=== PATIENT | female | born 1965 | race African-American/Black ===

== ENCOUNTER 2019-04-15 08:32 | Day surgery (SDC) | payer OTHER ==
[~2019-04-15 08:32] MED LIST: HYDROMORPHONE HCL 2 MG/ML inj ONE
--- OUTSIDE RECORDS SUMMARY | 2019-04-15 08:35 | XMS REPORT ---
:1965 [facility] Address [address] [place] [address] Dr. Calvo [address] [place] [id number] Care Team Providers Name Role Phone Unavailable Unavailable Unavailable Problems This patient has no known problems. Allergies, Adverse Reactions, Alerts This patient has no known allergies or adverse reactions. Medications This patient has no known medications.
[2019-04-15] MEDS ORDERED: NA CHLORIDE 0.9% 1,000 ML ONE ×2 (08:42→09:03)
[2019-04-15] MEDS ORDERED: LIDOCAINE 1% W/EPI 1:100,000 MDV 20 ML VIAL ONE (09:02)
[2019-04-15 09:03] LABS: Specific Gravity >= 1.030 (1.005-1.030)
[2019-04-15] MEDS ORDERED: MIDAZOLAM HCL 2 MG/2 ML INJ ONE (09:08)
[2019-04-15] MEDS ORDERED: ONDANSETRON 4 MG/2 ML VIAL ONE (09:08)
[2019-04-15] MEDS ORDERED: PROPOFOL 200 MG/20 ML VIAL IV ONE (09:08)
[2019-04-15] MEDS ORDERED: FENTANYL CITR 100 MCG/2 ML ONE (09:08)
[2019-04-15] MEDS ORDERED: LIDOCAINE 2% MPF 5 ML VIAL ONE (09:08)
[2019-04-15] MEDS ORDERED: IBUPROFEN 400 MG TAB ONE (10:48)
[2019-04-15] MEDS ORDERED: IBUPROFEN 200 MG TAB PO ONE (10:48)
--- NOTE | 2019-04-16 04:14 | OP ---
Date of Procedure: 04/15/2019 Surgeon: Yanet Hui MD Yacht Master: No assistants. Preoperative Diagnosis: History of endometrial hyperplasia, patient now with irregular periods, stil l in the premenopausal state. Postoperative Diagnosis: History of endometrial hyperplasia, patient now with irregular periods, sti ll in the premenopausal state. Procedures Performed: Hysteroscopy, dilation and curettage. Anesthesia: General with LMA. Specimens: Endometrial curetting. Complications: None. Drains: None. Condition: Stable. Findings: Uterine cavity unremarkable. Both tubal ostia well visualized. Endometrium did not appea r to be very thick and there was just a small impression of myoma in the anterior wall, but no other concerning irregular growths. Description Of Procedure: After informed consent was verified, patient was taken back to the OR, reginaldo mayank in a supine fashion on the operating table. After general anesthesia was given, LMA was placed a nd patient had a short period of time where there were oxygenation issues. She had saturations down to low 60s, so we waited to make sure that she was oxygenating and ventilating well. Once this was e nsured, then she was placed in a dorsal lithotomy position. She was placed in reverse Trendelenburg so that the airway was not compromised. Pelvic exam was performed. Uterus was anteflexed. Prep x3 with Betadine was done in the vagina. Speculum placed to expose the cervix. Anterior lip grasped wi th 2 Allis clamps. Diagnostic SlimLine hysteroscope was introduced through the cervical canal. Uter ine cavity was entered. Cavity was unremarkable as dictated above. Endometrial sampling was perform ed with a 0 curette. Scant endometrium was obtained, handed out for permanent pathology. All the in struments were removed. She was recovered from anesthesia in the OR and taken to the PACU in stable condition. She was saturating around 90% as she was leaving the OR. She will follow up with us in 1 week for results and once this is discussed, plan would be to limit her progesterone exposure to mary ry 3 months as long as her FSH is still below 40 and she is premenopausal. I discussed with this pat ient extensively about the safety of the Mirena compared to all the procedures that she is undergoing in order for maintenance that would decrease the need for surveillance as well as be protective for her endometrium given that she is unable to lose any weight. At this time, patient is not motivated to go through any weight loss procedures or do any diet changes for targeting weight loss. Patient u nderstands this; however, has severe reservations against Mirena. We will discuss this at the postop appointment. SUNIL Voice ID: [id number] Report ID: [id number]
== END 2019-04-15 11:30 | disposition home or self-care (01) ==
LOC: OR 08:32
PROVIDERS: ATTEND Obstetrics & Gynecology
PROC: 0UJD8ZZ Inspection of Uterus and Cervix, Via Natural or Artificial Opening Endoscopic (ICD-10-PCS; 2019-04-15)
PROC: 0UDB7ZX Extraction of Endometrium, Via Natural or Artificial Opening, Diagnostic (ICD-10-PCS; principal; 2019-04-15 09:30)
DX: N85.01 Benign endometrial hyperplasia (principal); N92.6 Irregular menstruation, unspecified; N95.1 Menopausal and female climacteric states; I10 Essential (primary) hypertension; E11.9 Type 2 diabetes mellitus without complications; K21.9 Gastro-esophageal reflux disease without esophagitis; E78.00 Pure hypercholesterolemia, unspecified; E66.01 Morbid (severe) obesity due to excess calories; Z68.43 Body mass index [BMI] 50.0-59.9, adult; Z88.6 Allergy status to analgesic agent; Z88.8 Allergy status to other drugs, medicaments and biological substances; Z80.3 Family history of malignant neoplasm of breast; Z80.0 Family history of malignant neoplasm of digestive organs; Z80.42 Family history of malignant neoplasm of prostate
CPT/HCPCS: 81025; 82962 ×2; 88305; 58558; J2704; J2250; J3010; J7030 ×2; J2405; J1170

== ENCOUNTER 2020-11-14 09:58 | Day surgery (SDC) | payer OTHER ==
[2020-11-14] MEDS ORDERED: NA CHLORIDE 0.9% 1,000 ML ONE (10:33)
[2020-11-14] MEDS ORDERED: CEFAZOLIN/SWI 2gm 2 GM/20 ML SYR ONE (10:33)
[2020-11-14] MEDS ORDERED: FENTANYL CITR 100 MCG/2 ML ONE (11:40)
[2020-11-14] MEDS ORDERED: MIDAZOLAM HCL 2 MG/2 ML INJ ONE (11:40)
[2020-11-14] MEDS ORDERED: LIDOCAINE 1% MPF 2 ML AMPULE ONE (11:40)
[2020-11-14] MEDS ORDERED: propofoL 200 MG/20 ML VIAL IV ONE (11:40)
[2020-11-14] MEDS ORDERED: LIDOCAINE 1% MPF 30 ML VIAL ONE (12:08)
[2020-11-14] MEDS ORDERED: BUPIVACAINE 0.25% PF 30 ML VIAL ONE (12:08)
[2020-11-14] MEDS ORDERED: KETOROLAC 30 MG/ML INJ ONE (13:37)
--- NOTE | 2020-11-14 14:01 | P.OP ---
Preoperative diagnosis: Temporal Arteritis Postoperative diagnosis: Temporal Arteritis Primary procedure: RIGHT Temporal Artery Biopsy Anesthesia: Local Estimated blood loss: <1cc Specimen: 1.3 cm segment of temporal artery Findings: tortuous temporal artery Complications: None Transferred to: Recovery Room Condition: Good
[2020-11-14 14:49] VITALS: TEMP 98.1; O2SAT 99
[2020-11-14 14:51] VITALS: BP 128/60
--- NOTE | 2020-11-14 22:39 | OP ---
Date of Procedure: 11/14/2020 Surgeon: Rudy Cabral MD, Preoperative Diagnosis: Temporal arteritis/giant cell arteritis. Postoperative Diagnosis: Temporal arteritis/giant cell arteritis. Procedure Performed: Right temporal artery biopsy. Anesthesia: Local 1% lidocaine used without epinephrine. Estimated Blood Loss: Less than 1 cc. Specimen: 1.3 cm segment of temporal artery. Findings: Tortuous temporal artery. Complications: None. Disposition: The patient was transferred to recovery room in good condition. Procedure In Detail: After informed consent was obtained, patient was prepped and draped in the usua l sterile fashion after adequate anesthesia was achieved. I mapped the area of the right temporal ar chino at the approximately 4 cm superior to the tragus on the right. I anesthetized this area after a ppropriately mapping and using Doppler ultrasound device. At this point, I made a sharp incision thr ough the subcutaneous tissues down through. I used electrocautery to dissect down through subcutaneo us fat to expose the temporoparietal fascia. At this point, no more electrocautery was used and I di ssected through the temporoparietal fascia to expose the temporal artery. At this point, I dissected the small tributaries and branches from the temporal artery staying on the superficial temporopariet al fascia to expose approximately 1.3 to 1.4 cm segment of the temporal artery. There was a bifurcat ion at this level going superiorly. As such at this point, I decided to ligate the temporal artery a nd took approximately 1.3 cm segment of temporal artery by encircling above some small distal aspect tying these off with 3-0 silk and using tenotomy scissors to ligate the structure. It was sent off f or pathologic examination. All tributaries were controlled with the same set 3-0 nylon suture withou t evidence of complication. No hemostatic measures were required and no bleeding was appreciated thr oughout the procedure. The area was copiously irrigated multiple times until completely clear. No a dditional hemostatic measures were required. The deep parietal fascia was left intact. At this poin t, I then reapproximated the skin and deep dermal plane using a 3-0 Vicryl suture in interrupted fash ion and the skin was closed with 4-0 Monocryl in a running fashion. Dermabond was placed over top. The patient tolerated the procedure well without evidence of complication and transferred to PACU in good condition. All counts were correct at the end of the case. LAVINIA/TREE Voice ID: [id number] Report ID: [id number]
== END 2020-11-14 15:05 | disposition home or self-care (01) ==
LOC: OR 09:58
PROVIDERS: ATTEND Surgery
PROC: 03BS0ZX Excision of Right Temporal Artery, Open Approach, Diagnostic (ICD-10-PCS; principal; 2020-11-14 12:00)
DX: M31.6 Other giant cell arteritis (principal); Z20.822 Contact with and (suspected) exposure to COVID-19
CPT/HCPCS: 37609; 82947 ×2; 88305; U0003; J2704; J3010; J2001; J0690; J7030; J2250

== ENCOUNTER 2024-08-16 08:48 | Emergency (ER) | payer OTHER ==
--- OUTSIDE RECORDS SUMMARY | 2024-08-16 08:55 | XMS REPORT | Continuity of Care Document ---
Author Name Unknown Address [address] [facility] [address] [place] [address] [facility] thconnect Address [address] [facility] [address] [place] [address] Care Team Providers Care Card Filer Name Role Phone Lauren SANHCEZ, Paula Primary Care Physician + [phone] PAULA JOHN Attending Clinician Unavailab PAULA Marie Attending Clinician Unavailab romeo John MANAGER CATEGORY, Paula Attending Clinician [phone] Gen OLIVAS, Orestes Attending Clinician [phone], [facility] Attending Clinician Unavailable Oscar Smith Attending Clinician [phone] Lab, Ang - Db Attending Clinician Unavailable OSCAR WALKER Attending Clinician Unavailable Mere Marrufo MD Attending Clinician + [phone] Doctor Unassigned, [place] Attending Clinician U navailable [email or web address] Attending Clinician Unavailrafi Rushing MD, Orestes Attending Clinician [phone] Nirmala Posada LCSW Attending Clinician [phone], [facility] Attending Clinician Unavailable ORESTES RUSHING Attending Clinician Unavailab Ananda Diana MD Attending Clinician MERE MARRUFO Attending Clinician Silvana Gardner MD Attending Clinician [phone] ANANDA PRINCE Attending Clinician Unavail able ANANDA PRINCE Attending Clinician Unavail able Lab, Ang - Db Attending Clinician Unavailable Pema Donald Attending Clinician [phone] Nurse, [facility] Attending Clinician Unavailable Vicki Castillo MD Attending Clinician [phone] VICKI CASTILLO Attending Clinician UnavailSILVANA Jordan Attending Clinician Unavailable NENO COLES Attending Clinician JERAMIE Curran Attending Clinician Unavailable SYHLA ALMAGUER Attending Clinician Unavailable [email or web address] Admitting Clinician UnavailJERAMIE Scott Admitting Clinician Unavailable Payers Payer Name Policy Type Policy Number Effective Date Expirati on Date Source MEDICARE PART A \T\ B [id number] 2009 00:00:00 [place] [id number] 2010 00:00:00 [place] [employer] [id number] 2009 00:00:00 [place] [id number] Problems Condition Name Condition Details Condition Category Status Onset Date Resolution Date Last Treatment Date Treating Clinician Comments Source Immunizati on due Immunizati on due Disease Active 09-09 00:00: 00 [facility] Diabetes mellitus Diabetes Mellitus Problem Active 04-04 00:00: 00 [facility] Hyperchole sterolemia Hyperchole sterolemia Problem Active 04-04 00:00: 00 [facility] Obesity Obesity Problem Active 04-04 00:00: 00 [facility] Neuropathy Neuropathy Problem Active 04-04 00:00: 00 [facility] Hypertensi ve disorder Hypertensi ve Disorder Problem Active 8 00:00: 00 [facility] Endometria l hyperplasi a Endometria l Hyperplasi a Problem Active 04-04 00:00: 00 [facility] Menopausal symptom Menopausal Symptom Problem Active 8 00:00: 00 [facility] Screening mammograph y Screening Mammograph y Problem Active 1 00:00: 00 [facility] Pain of right hip joint Pain of right hip joint Disease Active 10-14 00:00: 00 [facility] Diabetic polyneurop athy associated with type 2 diabetes mellitus Diabetic polyneurop athy associated with type 2 diabetes mellitus Disease Active 10-14 00:00: 00 [facility] Body mass index 40+ - severely obese Body Mass Index 40+ - Severely Obese Problem Active 03-15 00:00: 00 [facility] Total knee replacemen t status Total knee replacemen t status Disease Active 2018-09 00:00: 00 [facility] Primary osteoarthr itis of right knee Primary osteoarthr itis of right knee Disease Active 2018-09 00:00: 00 Overview: Formattin g of this note might be different from the original. Added automatic ally from request for surgery [id number] [facility] Essential hypertensi on Essential Hypertensi on Problem Active 04-13 00:00: 00 [facility] Menopause present Menopause Present Problem Active 03-23 00:00: 00 [facility] Severe obesity Severe Obesity Problem Active 2015-09 017 00:00: 00 [facility] Polycystic ovary syndrome Polycystic Ovary Syndrome Problem Active 05-25 00:00: 00 [facility] Urinary tract infectious disease Urinary Tract Infectious Disease Problem Active 12-27 00:00: 00 [facility] Breast lump Breast Lump Problem Active 12-27 00:00: 00 [facility] Arthralgia of both knees Arthralgia of both knees Disease Active 12-07 00:00: 00 [facility] Arthralgia of both knees Arthralgia of both knees Disease Active 12-07 00:00: 00 [facility] Benign endometria l hyperplasi a Benign Endometria l Hyperplasi a Problem Active 11-21 00:00: 00 [facility] Simple endometria l hyperplasi a Simple Endometria l Hyperplasi a Problem Active 04-19 00:00: 00 [facility] Medical Gynecologi charles examinatio n abnormal Gynecologi charles Examinatio n Abnormal Problem Active 04-19 00:00: 00 [facility] Right shoulder pain Right shoulder pain Disease Active 12-10 00:00: 00 [facility] Essential hypertensi on, benign Essential hypertensi on, benign Disease Active 12-10 00:00: 00 [facility] 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 ICD10 Diagnosis Term Transcriber Utility [facility] Neuropathy Neuropathy Disease Active 12-10 00:00: 00 [facility] Amenorrhea Amenorrhea Disease Active 12-10 00:00: 00 [facility] Cardiomega ly Cardiomega ly Disease Active 12-10 00:00: 00 [facility] Right shoulder pain Right shoulder pain Disease Active 12-10 00:00: 00 [facility] Vitamin D deficiency Vitamin D deficiency Disease Active 12-10 00:00: 00 Overview: Formattin g of this note might be different from the original. ICD10 Diagnosis Term Transcriber Utility [facility] Hyperlipid emia, mixed Hyperlipid emia, mixed Disease Active 12-10 00:00: 00 [facility] Allergic rhinitis Allergic rhinitis Disease Active 12-10 00:00: 00 [facility] Sleep apnea Sleep apnea Disease Recurre nce 12-10 00:00: 00 [facility] Allergic rhinitis, unspecifie d allergic rhinitis type Allergic rhinitis, unspecifie d allergic rhinitis type Disease Resolve d 12-07 00:00: 00 2017-12-23 00:00:00 2017-12-23 11:50:28 [facility] Routine general medical examinatio n at a health care facility Routine general medical examinatio n at a health care facility Disease Resolve d 04-25 00:00: 00 2017-12-23 00:00:00 2017-12-23 11:50:17 [facility] Allergies, Adverse Reactions, Alerts Allergy Name Allergy Type Status Severity Reaction(s) Onset Date Inactive Date Treating Clinician Comments Source lisinopr il DA Active LA 2018-09 00:00: 00 [facility] gabapent in DA Active 2018-09 00:00: 00 [facility] duloxeti ne DA Active 2018-09 00:00: 00 [facility] pregabal in DA Active 2018-09 00:00: 00 [facility] DULOXETI NE DRUG INGREDI Active Rash 12-07 00:00: 00 [facility] GABAPENT IN DRUG INGREDI Active Rash 12-07 00:00: 00 [facility] LISINOPR IL DRUG INGREDI Active COUGH 12-07 00:00: 00 [facility] PREGABAL IN DRUG INGREDI Active Rash 12-07 00:00: 00 [facility] Duloxeti ne Propensi ty to adverse reaction s Active Rash 12-07 00:00: 00 [facility] Gabapent in Propensi ty to adverse reaction s Active Rash 12-07 00:00: 00 [facility] Lisinopr il Propensi ty to adverse reaction s Active Cough 12-07 00:00: 00 Dry cough only [facility] Pregabal in Propensi ty to adverse reaction s Active Rash 12-07 00:00: 00 [facility] Cymbalta Allergy to substanc e Active [facility] DULOXETI NE HCL Allergy to substanc e Active [facility] Gabapent in Allergy to substanc e Active [facility] Lisinopr il Allergy to substanc e Active [facility] Lyrica Allergy to substanc e Active [facility] Pregabal in Allergy to substanc e Active [facility] Tramadol Allergy to substanc e Active [facility] Social History Social Habit Start Date Stop Date Quantity Comments Source [facility] Alcoholic beverage intake 2024-06-09 00:00:00 2024-06-09 00:00:00 Current non-drinker of alcohol (finding) [facility] History of Social function 2024-04-23 00:00:00 2024-04-23 00:00:00 [facility] Exposure to SARS-CoV-2 (event) 2023-01-05 00:00:00 2023-01-15 10:20:00 Not sure [facility] Alcohol intake 2022-04-26 00:00:00 2022-04-26 00:00:00 Current non-drinker of alcohol (finding) [facility] History SDOH Financial 2019-07-20 00:00:00 2019-07-20 00:00:00 5 [facility] History SDOH Food Worry 2019-07-20 00:00:00 2019-07-20 00:00:00 1 [facility] History SDOH Food Scarcity 2019-07-20 00:00:00 2019-07-20 00:00:00 1 [facility] History SDOH Transport Med 2019-07-20 00:00:00 2019-07-20 00:00:00 2 [facility] History SDOH Transport Non-Med 2019-07-20 00:00:00 2019-07-20 00:00:00 2 [facility] Tobacco use and exposure 2014-12-10 00:00:00 2014-12-10 00:00:00 Smokeless tobacco non-user [facility] Sex assigned at 1965 00:00:00 1965 00:00:00 [facility] Smoking Status Start Date Stop Date Source Never smoked tobacco [facility] Medications Ordered Medication Name Filled Medication Name Start Date Stop Date Current Medication? Ordering Clinician Indication Dosage Frequency Signature (SIG) Comments Components Source semaglutide (OZEMPIC) 2 mg/dose (8 mg/3 mL) Ij 2023-09 0 00:00: 00 Yes [id number] 2mg inject 2 mg under the skin weekly. [facility] empaglifloz in (JARDIANCE) 25 mg Tab tablet 2023-09 0 00:00: 00 Yes [id number] 25mg Take 1 tablet by mouth in the morning. [facility] semaglutide (OZEMPIC) 1 mg/dose (4 mg/3 mL) Ij 2023-09 0 00:00: 00 06-29 00:00 :00 No [id number] 1mg inject 1 mg under the skin weekly. [facility] metoprolol tartrate 100 mg tablet 2023-09 014 00:00: 00 Yes [id number] 100mg TAKE 1 TABLET BY MOUTH IN THE MORNING AND IN THE EVENING [facility] blood sugar diagnostic strip 2023-09 0 00:00: 00 06-09 00:00 :00 Yes [id number] Check blood sugar 1 time a day. E11.9. Brand per insurance. [facility] Blood-Gluco se Meter Kit 2023-09 0 00:00: 00 06-09 00:00 :00 Yes [id number] Check blood sugar 1 time a day, dispense brand per insurance [facility] Lancets Misc 2023-09 0 00:00: 00 06-09 00:00 :00 Yes [id number] Check blood sugar 1 time a day, dispense brand per insurance [facility] MONTELUKAST 10 mg tablet 05-29 00:00: 00 Yes [id number] 10mg TAKE 1 TABLET BY MOUTH EVERYDAY AT BEDTIME [facility] LEVOCETIRIZ INE 5 mg tablet 05-29 00:00: 00 Yes [id number] 5mg TAKE 1 TABLET BY MOUTH EVERY DAY IN THE EVENING [facility] carBAMazepi ne 200 mg tablet 2024-0 8-22 00:00: 00 Yes [id number] 400mg Take 2 tablets by mouth in the morning and 2 tablets at noon and 2 tablets in the evening. [facility] semaglutide (OZEMPIC) 1 mg/dose (4 mg/3 mL) PnIj 4-0 7-22 00:00: 00 06-29 00:00 :00 No [id number] 1mg inject 1 mg under the skin weekly. [facility] semaglutide (OZEMPIC) 1 mg/dose (4 mg/3 mL) Pn 4-0 7-09 00:00: 00 03-18 00:00 :00 No [id number] .25mg inject 0.25 mg under the skin weekly. [facility] semaglutide (OZEMPIC) 0.25 mg or 0.5 mg (2 mg/3 mL) PnIj 4-0 6-11 00:00: 00 03-10 00:00 :00 No [id number] .5mg inject 0.5 mg under the skin weekly. [facility] semaglutide (OZEMPIC) 1 mg/dose (4 mg/3 mL) Ij 4-0 5-04 00:00: 00 Yes [id number] 1mg inject 1 mg under the skin weekly. [facility] OZEMPIC 0.25 mg or 0.5 mg (2 mg/3 mL) Ij 4-0 4-17 00:00: 00 02-06 00:00 :00 No [id number] .5mg INJECT 0.5 MG UNDER THE SKIN WEEKLY FOR 60 DAYS. [facility] semaglutide (OZEMPIC) 0.25 mg or 0.5 mg (2 mg/3 mL) [facility] 4-0 3-05 00:00: 00 01-04 04:59 :00 No [id number] .5mg inject 0.5 mg under the skin weekly for 60 days. [facility] empaglifloz in (JARDIANCE) 25 mg Tab 2023-0 1-09 00:00: 00 06-15 00:00 :00 No [id number] 25mg Take 1 tablet by mouth in the morning. [facility] semaglutide (OZEMPIC) 0.25 mg or 0.5 mg (2 mg/3 mL) PnIj 09-10 00:00: 00 11-04 00:00 :00 No [id number] inject 0.25 mg under the skin weekly for 30 days, THEN 0.5 mg weekly for 60 days. [facility] omega 3-dha-epa-f amira oil (FISH OIL) 100-160-1,0 00 mg Cap 05-17 11:10: 37 Yes [facility] ergocalcife rol, vitamin D2, (VITAMIN D ORAL) 05-17 11:10: 37 Yes [facility] thiamine (VITAMIN B-1) 100 mg tablet 05-17 11:10: 37 Yes [facility] folic acid 0.8 mg Cap 05-17 11:10: 37 Yes [facility] blood sugar diagnostic strip 05-17 00:00: 00 06-09 00:00 :00 No [id number] Check blood sugar 2 times a day. E11.9. Brand per insurance. [facility] Blood-Gluco se Meter Kit 05-17 00:00: 00 06-09 00:00 :00 No [id number] Check sugars 2x times a day. Dx. Code E11.9 Brand per Insurance [facility] Lancets Misc 05-17 00:00: 00 06-09 00:00 :00 No [id number] Check blood sugar 2x times a day. E11.9. Brand per insurance. [facility] levocetiriz ine 5 mg tablet 05-17 00:00: 00 05-29 00:00 :00 No [id number] 5mg Take 1 tablet by mouth every evening. [facility] montelukast 10 mg tablet 05-17 00:00: 00 05-29 00:00 :00 No [id number] 10mg Take 1 tablet by mouth at bedtime. [facility] carBAMazepi ne 200 mg tablet 18 00:00: 00 04-23 00:00 :00 No [id number] 400mg Take 2 tablets by mouth in the morning and 2 tablets at noon and 2 tablets in the evening. [facility] Cholecalcif miguelito, Vitamin D3, 25 mcg (1,000 unit) capsule 01-15 10:30: 53 Yes 1000U Take 1 capsule by mouth in the morning. [facility] omega-3 fatty acids-vitam in E 1,000 mg capsule 01-15 10:30: 53 Yes 2g Take 2 capsules by mouth in the morning. [facility] omega-3 fatty acids-vitam in E 1,000 mg capsule 01-15 10:30: 53 Yes 2g Take 2 capsules by mouth in the morning. [facility] ergocalcife rol, vitamin D2, (VITAMIN D ORAL) 01-15 10:30: 53 Yes Take by mouth. [facility] blood sugar diagnostic strip 01-15 00:00: 00 Yes [id number] Check blood sugar 2 times a day. E11.9. Brand per insurance. [facility] metoprolol tartrate 100 mg tablet 01-15 00:00: 00 06-15 00:00 :00 No [id number] 100mg Take 1 tablet by mouth in the morning and 1 tablet in the evening. [facility] blood sugar diagnostic strip 01-15 00:00: 00 05-17 00:00 :00 No [id number] Check blood sugar 2 times a day. E11.9. Brand per insurance. [facility] carBAMazepi ne 200 mg tablet 01-01 00:00: 00 04-19 00:00 :00 No [id number] 400mg Take 2 tablets by mouth in the morning and 2 tablets at noon and 2 tablets in the evening. [facility] fluconazole (DIFLUCAN) 150 mg tablet 1-31 00:00: 00 10-03 05:59 :00 No [id number] 150mg Take 1 tablet by mouth once now for 1 dose. [facility] cephALEXin (KEFLEX) 500 mg capsule 09-12 00:00: 00 09-23 05:59 :00 No [id number] 500mg Take 1 capsule by mouth in the morning and 1 capsule at noon and 1 capsule in the evening. Do all this for 10 days. [facility] Nitrofurant oin&Nit. Macrocryst (MACROBID) 100 mg capsule 2021-09 00:00: 00 09-12 00:00 :00 No [id number] 100mg Take 1 capsule by mouth in the morning and 1 capsule in the evening. [facility] MONTELUKAST 10 mg tablet 2021-09 00:00: 00 05-17 00:00 :00 No [id number] TAKE 1 TABLET BY MOUTH EVERYDAY AT BEDTIME [facility] CLONIDINE 0.2 mg tablet 2021-09 00:00: 00 Yes [id number] TAKE 1 TABLET BY MOUTH EVERYDAY AT BEDTIME [facility] CARBAMAZEPI NE 200 mg tablet 2021-09 00:00: 00 01-01 00:00 :00 No [id number] TAKE 1 TABLET BY MOUTH EVERY 8 HOURS. [facility] carBAMazepi ne 200 mg tablet 05-21 00:00: 00 06-12 00:00 :00 No [id number] 200mg Take 1 tablet by mouth every 8 (eight) hours. [facility] carBAMazepi ne 200 mg tablet 05-18 08:42: 02 05-18 00:00 :00 No 200{tbl } Take 200 tablets by mouth 3 (three) times daily with meals. [facility] carBAMazepi ne 200 mg tablet 05-18 00:00: 00 05-21 00:00 :00 No 200mg Take 1 tablet by mouth every 8 (eight) hours. [facility] ergocalcife rol, vitamin D2, (VITAMIN D ORAL) 8 15:29: 28 Yes Take by mouth. [facility] Cholecalcif miguelito, Vitamin D3, (VITAMIN D3) 1,000 unit Cap 04-26 15:27: 34 Yes 1{capsu le} Take 1 Cap by mouth daily. [facility] omega-3 fatty acids-vitam in E (FISH OIL) 1,000 mg capsule 04-26 15:27: 31 Yes 2g Take 2 g by mouth daily. [facility] carBAMazepi ne 200 mg tablet 04-26 15:26: 15 Yes 200{tbl } Take 200 tablets by mouth 3 (three) times daily with meals. [facility] LEVOCETIRIZ INE 5 mg tablet 04-13 00:00: 00 05-17 00:00 :00 No [id number] TAKE 1 TABLET BY MOUTH EVERY DAY IN THE EVENING [facility] Lancets Mis 04-04 00:00: 00 Yes [id number] Check blood sugar 2x times a day. E11.9. Brand per insurance. [facility] Blood-Gluco se Meter Kit 04-04 00:00: 00 Yes [id number] Check sugars 2x times a day. Dx. Code E11.9 Brand per Insurance [facility] empaglifloz in 10 mg 04-04 00:00: 00 09-10 00:00 :00 No [id number] 10mg Take 1 tablet by mouth in the morning. [facility] Lancets Mis 04-04 00:00: 00 05-17 00:00 :00 No [id number] Check blood sugar 2x times a day. E11.9. Brand per insurance. [facility] Blood-Gluco se Meter Kit 04-04 00:00: 00 05-17 00:00 :00 No [id number] Check sugars 2x times a day. Dx. Code E11.9 Brand per Insurance [facility] metFORMIN 1,000 mg tablet 04-04 00:00: 00 05-17 00:00 :00 No [id number] 1000mg Take 1 tablet by mouth in the morning and 1 tablet in the evening. Take with meals. [facility] blood sugar diagnostic strip 8-03 00:00: 00 01-15 00:00 :00 No [id number] Check blood sugar 2 times a day. E11.9. Brand per insurance. [facility] METOPROLOL TARTRATE 100 mg tablet 5-18 00:00: 00 01-15 00:00 :00 No [id number] TAKE 1 TABLET BY MOUTH TWICE A DAY [facility] montelukast 10 mg tablet 16 00:00: 00 06-29 00:00 :00 No [id number] 10mg Take 1 tablet by mouth at bedtime. [facility] cloNIDine 0.2 mg tablet 05-18 00:00: 00 06-15 00:00 :00 No [id number] TAKE 1 TABLET BY MOUTH EVERYDAY AT BEDTIME [facility] EPITOL 200 mg tablet 3-23 00:00: 00 05-18 00:00 :00 No [id number] TAKE 2 TABLETS BY MOUTH 3 TIMES A DAY [facility] sulfamethox azole-trime thoprim (BACTRIM DS) 800-160 mg per tablet - 00:00: 00 05-18 00:00 :00 No [id number] 1{tbl} Take 1 tablet by mouth 2 (two) times daily for 7 days. [facility] LEVOCETIRIZ INE 5 mg tablet 1-05 00:00: 00 03-13 00:00 :00 No [id number] TAKE 1 TABLET BY MOUTH EVERY DAY IN THE EVENING [facility] cloNIDine 0.2 mg tablet 2019-09 0- 00:00: 00 05-18 00:00 :00 No [id number] TAKE 1 TABLET BY MOUTH EVERYDAY AT BEDTIME [facility] montelukast 10 mg tablet 2019-09 0- 00:00: 00 05-18 00:00 :00 No [id number] 10mg Take 1 tablet by mouth at bedtime. [facility] CARBAMAZEPI NE 200 mg tablet 05-06 00:00: 09-30 00:00 :00 No [id number] TAKE 2 TABLETS BY MOUTH 3 TIMES A DAY [facility] DICLOFENAC 75 mg EC tablet 12-15 00:00: 02-01 00:00 :00 No [id number] TAKE 1 TABLET BY MOUTH TWICE A DAY WITH MEALS [facility] METOPROLOL TARTRATE 100 mg tablet 12-15 00:00: 01-12 00:00 :00 No [id number] TAKE 1 TABLET BY MOUTH TWICE A DAY [facility] blood sugar diagnostic strip 2017-09 00:00: 00 04-04 00:00 :00 No [id number] BID.Dx Code E11.9. Brand per insurance. ( Accu-check ) [facility] Lancets Misc 2017-09 00:00: 04-04 00:00 :00 No [id number] BID. Dx Code E11.9. Brand per insurance. [facility] Blood-Gluco se Meter Kit 12-23 00:00: 09-05 00:00 :00 No [id number] Check sugars daily. Dx Code E11.9. Brand per insurance. [facility] Provera 10 mg tablet Take 1 tablet every day by oral route for 14 days. Provera 10 mg tablet Take 1 tablet every day by oral route for 14 days. No 1 Q1D Provera 10 mg tablet Take 1 tablet every day by oral route for 14 days. [facility] Vitamin B1 Vitamin B1 No Vitamin B1 [facility] Vitamin B12 Vitamin B12 No Vi tamin B12 [facility] Vitamin D Vitamin D No Vitamin D [facility] atorvastati n 40 mg tablet TAKE 1 TABLET BY MOUTH EVERYDAY AT BEDTIME atorvastati n 40 mg tablet TAKE 1 TABLET BY MOUTH EVERYDAY AT BEDTIME No atorvastat in 40 mg tablet TAKE 1 TABLET BY MOUTH EVERYDAY AT BEDTIME [facility] clonidine HCl 0.1 mg tablet TAKE 1 TABLET BY MOUTH THREE TIMES A DAY FOR 90 DAYS clonidine HCl 0.1 mg tablet TAKE 1 TABLET BY MOUTH THREE TIMES A DAY FOR 90 DAYS No clonidine HCl 0.1 mg tablet TAKE 1 TABLET BY MOUTH THREE TIMES A DAY FOR 90 DAYS [facility] diclofenac 1 % topical gel APPLY TOPICALLY TO THE AFFECTED AREA FOUR TIMES DAILY diclofenac 1 % topical gel APPLY TOPICALLY TO THE AFFECTED AREA FOUR TIMES DAILY No diclofenac 1 % topical gel APPLY TOPICALLY TO THE AFFECTED AREA FOUR TIMES DAILY [facility] Fish Oil Fish Oil No Fish Oil [facility] Flonase Allergy Relief Flonase Allergy Relief No Flonase Allergy Relief [facility] fluticasone propionate 50 mcg/actuati on nasal spray,suspe nsion SPRAY 2 SPRAYS INTO EACH NOSTRIL IN THE MORNING fluticasone propionate 50 mcg/actuati on nasal spray,suspe nsion SPRAY 2 SPRAYS INTO EACH NOSTRIL IN THE MORNING No fluticason e propionate 50 mcg/actuat ion nasal spray,susp ension SPRAY 2 SPRAYS INTO EACH NOSTRIL IN THE MORNING [facility] folic acid folic acid No folic acid [facility] hydrochloro thiazide 25 mg tablet Take 1 tablet every day by oral route. hydrochloro thiazide 25 mg tablet Take 1 tablet every day by oral route. No hydrochlor othiazide 25 mg tablet Take 1 tablet every day by oral route. [facility] hydrocodone 5 mg-acetamin ophen 325 mg tablet TAKE 1 TABLET BY MOUTH TWICE DAILY. hydrocodone 5 mg-acetamin ophen 325 mg tablet TAKE 1 TABLET BY MOUTH TWICE DAILY. No hydrocodon e 5 mg-acetami nophen 325 mg tablet TAKE 1 TABLET BY MOUTH TWICE DAILY. [facility] ibuprofen 800 mg tablet TAKE 1 TABLET BY MOUTH EVERY 6 (SIX) HOURS NEEDED (SEVERE BREAKTHROUG H JOINT PAINS). ibuprofen 800 mg tablet TAKE 1 TABLET BY MOUTH EVERY 6 (SIX) HOURS NEEDED (SEVERE BREAKTHROUG H JOINT PAINS). No ibuprofen 800 mg tablet TAKE 1 TABLET BY MOUTH EVERY 6 (SIX) HOURS NEEDED (SEVERE BREAKTHROU GH JOINT PAINS). [facility] Jardiance 10 mg tablet Take 1 tablet every day by oral route. Jardiance 10 mg tablet Take 1 tablet every day by oral route. No Jardiance 10 mg tablet Take 1 tablet every day by oral route. [facility] losartan 100 mg tablet TAKE 1 TABLET BY MOUTH EVERY DAY losartan 100 mg tablet TAKE 1 TABLET BY MOUTH EVERY DAY No losartan 100 mg tablet TAKE 1 TABLET BY MOUTH EVERY DAY [facility] metformin 500 mg tablet Take 1 tablet twice a day by oral route. metformin 500 mg tablet Take 1 tablet twice a day by oral route. No metformin 500 mg tablet Take 1 tablet twice a day by oral route. [facility] naloxone 4 mg/actuatio n nasal spray CALL 911. SPR CONTENTS OF ONE SPRAYER (0.1ML) INTO ONE NOSTRIL. REPEAT IN 2-3 MIN IF SYMPTOMS OF OPIOID EMERGENCY PERSIST, ALTERNATE NOSTRILS naloxone 4 mg/actuatio n nasal spray CALL 911. SPR CONTENTS OF ONE SPRAYER (0.1ML) INTO ONE NOSTRIL. REPEAT IN 2-3 MIN IF SYMPTOMS OF OPIOID EMERGENCY PERSIST, ALTERNATE NOSTRILS No naloxone 4 mg/actuati on nasal spray CALL 911. SPR CONTENTS OF ONE SPRAYER (0.1ML) INTO ONE NOSTRIL. REPEAT IN 2-3 MIN IF SYMPTOMS OF OPIOID EMERGENCY PERSIST, ALTERNATE NOSTRILS [facility] OneTouch Delica Plus Lancet 33 gauge CHECK BLOOD SUGAR TWICE DAILY. OneTouch Delica Plus Lancet 33 gauge CHECK BLOOD SUGAR TWICE DAILY. No OneTouch Delica Plus Lancet 33 gauge CHECK BLOOD SUGAR TWICE DAILY. [facility] OneTouch Ultra Test strips CHECK BLOOD SUGAR TWICE DAILY. OneTouch Ultra Test strips CHECK BLOOD SUGAR TWICE DAILY. No OneTouch Ultra Test strips CHECK BLOOD SUGAR TWICE DAILY. [facility] OneTouch Ultra2 Meter CHECK SUGAR TWICE DAILY. OneTouch Ultra2 Meter CHECK SUGAR TWICE DAILY. No OneTouch Ultra2 Meter CHECK SUGAR TWICE DAILY. [facility] Immunizations Ordered Immunization Name Filled Immunization Name Date Status Comments Source Influenza Virus Vaccine Quad IM, Preserv and ABX Free 6 MO-64 YRS (FLUCELVAX) 2023-09-09 00:00:00 Completed [facility] Influenza Virus Vaccine Quad IM, Preserv and ABX Free 6 MO-64 YRS (FLUCELVAX) 2023-09-09 00:00:00 Completed [facility] Influenza Virus Vaccine Quad IM, Preserv and ABX Free 6 MO-64 YRS (FLUCELVAX) 2023-09-09 00:00:00 Completed [facility] Influenza Virus Vaccine 2022-05-08 00:00:00 Completed [facility] Influenza Virus Vaccine 2022-05-08 00:00:00 Completed [facility] Influenza Virus Vaccine 2022-05-08 00:00:00 Completed [facility] Influenza Virus Vaccine 2022-05-08 00:00:00 Completed [facility] Influenza Virus Vaccine 2022-05-08 00:00:00 Completed [facility] Influenza Virus Vaccine 2022-05-08 00:00:00 Completed [facility] Influenza Virus Vaccine 2022-05-08 00:00:00 Completed [facility] Influenza Virus Vaccine 2022-05-08 00:00:00 Completed [facility] Influenza Virus Vaccine 2022-05-08 00:00:00 Completed [facility] Influenza Virus Vaccine 2022-05-08 00:00:00 Completed [facility] Influenza Virus Vaccine 2022-05-08 00:00:00 Completed [facility] Influenza Virus Vaccine 2022-05-08 00:00:00 Completed [facility] Influenza Virus Vaccine 2022-05-08 00:00:00 Completed [facility] Influenza Virus Vaccine 2022-05-08 00:00:00 Completed [facility] Influenza Virus Vaccine 2022-05-08 00:00:00 Completed [facility] Influenza Virus Vaccine 2022-05-08 00:00:00 Completed [facility] Influenza Virus Vaccine 2022-05-08 00:00:00 Completed [facility] Influenza Virus Vaccine 2022-05-08 00:00:00 Completed [facility] Influenza Virus Vaccine 2022-05-08 00:00:00 Completed [facility] Influenza Virus Vaccine 2022-05-08 00:00:00 Completed [facility] Influenza Virus Vaccine 2022-05-08 00:00:00 Completed [facility] Influenza Virus Vaccine 2022-05-08 00:00:00 Completed [facility] Influenza Virus Vaccine 2022-05-08 00:00:00 Completed [facility] Influenza Virus Vaccine 2022-05-08 00:00:00 Completed [facility] Influenza Virus Vaccine 2022-05-08 00:00:00 Completed [facility] Influenza Virus Vaccine 2022-05-08 00:00:00 Completed [facility] Influenza Virus Vaccine 2022-05-08 00:00:00 Completed [facility] Influenza Virus Vaccine 2022-05-08 00:00:00 Completed [facility] Influenza Virus Vaccine Quad IM, Preserv and ABX Free 6 MO-64 YRS 2021-06-12 00:00:00 Completed [facility] Influenza Virus Vaccine Quad IM, Preserv and ABX Free 6 MO-64 YRS 2021-06-12 00:00:00 Completed [facility] Influenza Virus Vaccine Quad IM, Preserv and ABX Free 6 MO-64 YRS 2021-06-12 00:00:00 Completed [facility] Influenza Virus Vaccine Quad IM, Preserv and ABX Free 6 MO-64 YRS 2021-06-12 00:00:00 Completed [facility] Influenza Virus Vaccine Quad IM, Preserv and ABX Free 6 MO-64 YRS 2021-06-12 00:00:00 Completed [facility] Influenza Virus Vaccine Quad IM, Preserv and ABX Free 6 MO-64 YRS 2021-06-12 00:00:00 Completed [facility] Influenza Virus Vaccine Quad IM, Preserv and ABX Free 6 MO-64 YRS 2021-06-12 00:00:00 Completed [facility] Influenza Virus Vaccine Quad IM, Preserv and ABX Free 6 MO-64 YRS 2021-06-12 00:00:00 Completed [facility] Influenza Virus Vaccine Quad IM, Preserv and ABX Free 6 MO-64 YRS 2021-06-12 00:00:00 Completed [facility] Influenza Virus Vaccine Quad IM, Preserv and ABX Free 6 MO-64 YRS 2021-06-12 00:00:00 Completed [facility] Influenza Virus Vaccine Quad IM, Preserv and ABX Free 6 MO-64 YRS 2021-06-12 00:00:00 Completed [facility] Influenza Virus Vaccine Quad IM, Preserv and ABX Free 6 MO-64 YRS 2021-06-12 00:00:00 Completed [facility] Influenza Virus Vaccine Quad IM, Preserv and ABX Free 6 MO-64 YRS 2021-06-12 00:00:00 Completed [facility] Influenza Virus Vaccine Quad IM, Preserv and ABX Free 6 MO-64 YRS 2021-06-12 00:00:00 Completed [facility] Influenza Virus Vaccine Quad IM, Preserv and ABX Free 6 MO-64 YRS 2021-06-12 00:00:00 Completed [facility] Influenza Virus Vaccine Quad IM, Preserv and ABX Free 6 MO-64 YRS 2021-06-12 00:00:00 Completed [facility] Influenza Virus Vaccine Quad IM, Preserv and ABX Free 6 MO-64 YRS 2021-06-12 00:00:00 Completed [facility] Influenza Virus Vaccine Quad IM, Preserv and ABX Free 6 MO-64 YRS 2021-06-12 00:00:00 Completed [facility] Influenza Virus Vaccine Quad IM, Preserv and ABX Free 6 MO-64 YRS 2021-06-12 00:00:00 Completed [facility] Influenza Virus Vaccine Quad IM, Preserv and ABX Free 6 MO-64 YRS 2021-06-12 00:00:00 Completed [facility] Influenza Virus Vaccine Quad IM, Preserv and ABX Free 6 MO-64 YRS 2021-06-12 00:00:00 Completed [facility] Influenza Virus Vaccine Quad IM, Preserv and ABX Free 6 MO-64 YRS 2021-06-12 00:00:00 Completed [facility] Influenza Virus Vaccine Quad IM, Preserv and ABX Free 6 MO-64 YRS 2021-06-12 00:00:00 Completed [facility] Influenza Virus Vaccine Quad IM, Preserv and ABX Free 6 MO-64 YRS 2021-06-12 00:00:00 Completed [facility] Influenza Virus Vaccine Quad IM, Preserv and ABX Free 6 MO-64 YRS (FLUCELVAX) 2021-06-12 00:00:00 Completed [facility] Influenza Virus Vaccine Quad IM, Preserv and ABX Free 6 MO-64 YRS (FLUCELVAX) 2021-06-12 00:00:00 Completed [facility] Influenza Virus Vaccine Quad IM, Preserv and ABX Free 6 MO-64 YRS (FLUCELVAX) 2021-06-12 00:00:00 Completed [facility] Influenza Virus Vaccine Quad IM, Preserv and ABX Free 6 MO-64 YRS (FLUCELVAX) 2021-06-12 00:00:00 Completed [facility] Influenza Virus Vaccine Quad IM, Preserv and ABX Free 6 MO-64 YRS (FLUCELVAX) 2021-06-12 00:00:00 Completed [facility] Influenza Virus Vaccine Quad .5 mL IM 6+ MO 2020-06-10 00:00:00 Completed [facility] Influenza Virus Vaccine Quad .5 mL IM 6+ MO 2020-06-10 00:00:00 Completed [facility] Influenza Virus Vaccine Quad .5 mL IM 6+ MO 2020-06-10 00:00:00 Completed [facility] Influenza Virus Vaccine Quad .5 mL IM 6+ MO 2020-06-10 00:00:00 Completed [facility] Influenza Virus Vaccine Quad .5 mL IM 6+ MO 2020-06-10 00:00:00 Completed [facility] Influenza Virus Vaccine Quad .5 mL IM 6+ MO 2020-06-10 00:00:00 Completed [facility] Influenza Virus Vaccine Quad .5 mL IM 6+ MO 2020-06-10 00:00:00 Completed [facility] Influenza Virus Vaccine Quad .5 mL IM 6+ MO 2020-06-10 00:00:00 Completed [facility] Influenza Virus Vaccine Quad .5 mL IM 6+ MO 2020-06-10 00:00:00 Completed [facility] Influenza Virus Vaccine Quad .5 mL IM 6+ MO 2020-06-10 00:00:00 Completed [facility] Influenza Virus Vaccine Quad .5 mL IM 6+ MO 2020-06-10 00:00:00 Completed [facility] Influenza Virus Vaccine Quad .5 mL IM 6+ MO 2020-06-10 00:00:00 Completed [facility] Influenza Virus Vaccine Quad .5 mL IM 6+ MO 2020-06-10 00:00:00 Completed [facility] Influenza Virus Vaccine Quad .5 mL IM 6+ MO (FLUZONE/FLULAVAL/F LUARIX) 2020-06-10 00:00:00 Completed [facility] Influenza Virus Vaccine Quad .5 mL IM 6+ MO (FLUZONE/FLULAVAL/F LUARIX) 2020-06-10 00:00:00 Completed [facility] Influenza Virus Vaccine Quad .5 mL IM 6+ MO (FLUZONE/FLULAVAL/F LUARIX) 2020-06-10 00:00:00 Completed [facility] Influenza Virus Vaccine Quad .5 mL IM 6+ MO (FLUZONE/FLULAVAL/F LUARIX) 2020-06-10 00:00:00 Completed [facility] Influenza Virus Vaccine Quad .5 mL IM 6+ MO (FLUZONE/FLULAVAL/F LUARIX) 2020-06-10 00:00:00 Completed [facility] Influenza Virus Vaccine Quad .5 mL IM 6+ MO 2020-06-10 00:00:00 Completed [facility] Influenza Virus Vaccine Quad .5 mL IM 6+ MO 2020-06-10 00:00:00 Completed [facility] Influenza Virus Vaccine Quad .5 mL IM 6+ MO 2020-06-10 00:00:00 Completed [facility] Influenza Virus Vaccine Quad .5 mL IM 6+ MO 2020-06-10 00:00:00 Completed [facility] Influenza Virus Vaccine Quad .5 mL IM 6+ MO 2020-06-10 00:00:00 Completed [facility] Influenza Virus Vaccine Quad .5 mL IM 6+ MO 2020-06-10 00:00:00 Completed [facility] Influenza Virus Vaccine Quad .5 mL IM 6+ MO 2020-06-10 00:00:00 Completed [facility] Influenza Virus Vaccine Quad .5 mL IM 6+ MO 2020-06-10 00:00:00 Completed [facility] Influenza Virus Vaccine Quad .5 mL IM 6+ MO 2020-06-10 00:00:00 Completed [facility] Influenza Virus Vaccine Quad .5 mL IM 6+ MO 2020-06-10 00:00:00 Completed [facility] Influenza Virus Vaccine Quad .5 mL IM 6+ MO 2020-06-10 00:00:00 Completed [facility] Influenza Virus Vaccine Quad .5 mL IM 6+ MO 2019-07-22 00:00:00 Completed [facility] Influenza Virus Vaccine Quad .5 mL IM 6+ MO 2019-07-22 00:00:00 Completed [facility] Influenza Virus Vaccine Quad .5 mL IM 6+ MO 2019-07-22 00:00:00 Completed [facility] Influenza Virus Vaccine Quad .5 mL IM 6+ MO 2019-07-22 00:00:00 Completed [facility] Influenza Virus Vaccine Quad .5 mL IM 6+ MO 2019-07-22 00:00:00 Completed [facility] Influenza Virus Vaccine Quad .5 mL IM 6+ MO 2019-07-22 00:00:00 Completed [facility] Influenza Virus Vaccine Quad .5 mL IM 6+ MO 2019-07-22 00:00:00 Completed [facility] Influenza Virus Vaccine Quad .5 mL IM 6+ MO 2019-07-22 00:00:00 Completed [facility] Influenza Virus Vaccine Quad .5 mL IM 6+ MO 2019-07-22 00:00:00 Completed [facility] Influenza Virus Vaccine Quad .5 mL IM 6+ MO 2019-07-22 00:00:00 Completed [facility] Influenza Virus Vaccine Quad .5 mL IM 6+ MO 2019-07-22 00:00:00 Completed [facility] Influenza Virus Vaccine Quad .5 mL IM 6+ MO 2019-07-22 00:00:00 Completed [facility] Influenza Virus Vaccine Quad .5 mL IM 6+ MO 2019-07-22 00:00:00 Completed [facility] Influenza Virus Vaccine Quad .5 mL IM 6+ MO 2019-07-22 00:00:00 Completed [facility] Influenza Virus Vaccine Quad .5 mL IM 6+ MO 2019-07-22 00:00:00 Completed [facility] Influenza Virus Vaccine Quad .5 mL IM 6+ MO 2019-07-22 00:00:00 Completed [facility] Influenza Virus Vaccine Quad .5 mL IM 6+ MO 2019-07-22 00:00:00 Completed [facility] Influenza Virus Vaccine Quad .5 mL IM 6+ MO 2019-07-22 00:00:00 Completed [facility] Influenza Virus Vaccine Quad .5 mL IM 6+ MO 2019-07-22 00:00:00 Completed [facility] Influenza Virus Vaccine Quad .5 mL IM 6+ MO 2019-07-22 00:00:00 Completed [facility] Influenza Virus Vaccine Quad .5 mL IM 6+ MO 2019-07-22 00:00:00 Completed [facility] Influenza Virus Vaccine Quad .5 mL IM 6+ MO 2019-07-22 00:00:00 Completed [facility] Influenza Virus Vaccine Quad .5 mL IM 6+ MO 2019-07-22 00:00:00 Completed [facility] Influenza Virus Vaccine Quad .5 mL IM 6+ MO 2019-07-22 00:00:00 Completed [facility] Influenza Virus Vaccine Quad .5 mL IM 6+ MO (FLUZONE/FLULAVAL/F LUARIX) 2019-07-22 00:00:00 Completed [facility] Influenza Virus Vaccine Quad .5 mL IM 6+ MO (FLUZONE/FLULAVAL/F LUARIX) 2019-07-22 00:00:00 Completed [facility] Influenza Virus Vaccine Quad .5 mL IM 6+ MO (FLUZONE/FLULAVAL/F LUARIX) 2019-07-22 00:00:00 Completed [facility] Influenza Virus Vaccine Quad .5 mL IM 6+ MO (FLUZONE/FLULAVAL/F LUARIX) 2019-07-22 00:00:00 Completed [facility] Influenza Virus Vaccine Quad .5 mL IM 6+ MO (FLUZONE/FLULAVAL/F LUARIX) 2019-07-22 00:00:00 Completed [facility] Pneumococcal Polysaccharide, PPSV23 (PNEUMOVAX) 2019-02-26 00:00:00 Completed [facility] Pneumococcal Polysaccharide, PPSV23 (PNEUMOVAX) 2019-02-26 00:00:00 Completed [facility] Pneumococcal Polysaccharide, PPSV23 (PNEUMOVAX) 2019-02-26 00:00:00 Completed [facility] Pneumococcal Polysaccharide, PPSV23 (PNEUMOVAX) 2019-02-26 00:00:00 Completed [facility] Pneumococcal Polysaccharide, PPSV23 (PNEUMOVAX) 2019-02-26 00:00:00 Completed [facility] Pneumococcal Polysaccharide, PPSV23 (PNEUMOVAX) 2019-02-26 00:00:00 Completed [facility] Pneumococcal Polysaccharide, PPSV23 (PNEUMOVAX) 2019-02-26 00:00:00 Completed [facility] Pneumococcal Polysaccharide, PPSV23 (PNEUMOVAX) 2019-02-26 00:00:00 Completed [facility] Pneumococcal Polysaccharide, PPSV23 (PNEUMOVAX) 2019-02-26 00:00:00 Completed [facility] Pneumococcal Polysaccharide, PPSV23 (PNEUMOVAX) 2019-02-26 00:00:00 Completed [facility] Pneumococcal Polysaccharide, PPSV23 (PNEUMOVAX) 2019-02-26 00:00:00 Completed [facility] Pneumococcal Polysaccharide, PPSV23 (PNEUMOVAX) 2019-02-26 00:00:00 Completed [facility] Pneumococcal Polysaccharide, PPSV23 (PNEUMOVAX) 2019-02-26 00:00:00 Completed [facility] Pneumococcal Polysaccharide, PPSV23 (PNEUMOVAX) 2019-02-26 00:00:00 Completed [facility] Pneumococcal Polysaccharide, PPSV23 (PNEUMOVAX) 2019-02-26 00:00:00 Completed [facility] Pneumococcal Polysaccharide, PPSV23 (PNEUMOVAX) 2019-02-26 00:00:00 Completed [facility] Pneumococcal Polysaccharide, PPSV23 (PNEUMOVAX) 2019-02-26 00:00:00 Completed [facility] Pneumococcal Polysaccharide, PPSV23 (PNEUMOVAX) 2019-02-26 00:00:00 Completed [facility] Pneumococcal Polysaccharide, PPSV23 (PNEUMOVAX) 2019-02-26 00:00:00 Completed [facility] Pneumococcal Polysaccharide, PPSV23 (PNEUMOVAX) 2019-02-26 00:00:00 Completed [facility] Pneumococcal Polysaccharide, PPSV23 (PNEUMOVAX) 2019-02-26 00:00:00 Completed [facility] Pneumococcal Polysaccharide, PPSV23 (PNEUMOVAX) 2019-02-26 00:00:00 Completed [facility] Pneumococcal Polysaccharide, PPSV23 (PNEUMOVAX) 2019-02-26 00:00:00 Completed [facility] Pneumococcal Polysaccharide, PPSV23 (PNEUMOVAX) 2019-02-26 00:00:00 Completed [facility] Pneumococcal Polysaccharide, PPSV23 (PNEUMOVAX) 2019-02-26 00:00:00 Completed [facility] Pneumococcal Polysaccharide, PPSV23 (PNEUMOVAX) 2019-02-26 00:00:00 Completed [facility] Pneumococcal Polysaccharide, PPSV23 (PNEUMOVAX) 2019-02-26 00:00:00 Completed [facility] Pneumococcal Polysaccharide, PPSV23 (PNEUMOVAX) 2019-02-26 00:00:00 Completed [facility] Pneumococcal Polysaccharide, PPSV23 (PNEUMOVAX) 2019-02-26 00:00:00 Completed [facility] Influenza Virus Vaccine Quad IM 3+ YRS 2018-10-29 00:00:00 Completed [facility] Influenza Virus Vaccine Quad IM 3+ YRS 2018-10-29 00:00:00 Completed [facility] Influenza Virus Vaccine Quad IM 3+ YRS 2018-10-29 00:00:00 Completed [facility] Influenza Virus Vaccine Quad IM 3+ YRS 2018-10-29 00:00:00 Completed [facility] Influenza Virus Vaccine Quad IM 3+ YRS 2018-10-29 00:00:00 Completed [facility] Influenza Virus Vaccine Quad IM 3+ YRS 2018-10-29 00:00:00 Completed [facility] Influenza Virus Vaccine Quad IM 3+ YRS 2018-10-29 00:00:00 Completed [facility] Influenza Virus Vaccine Quad IM 3+ YRS 2018-10-29 00:00:00 Completed [facility] Influenza Virus Vaccine Quad IM 3+ YRS 2018-10-29 00:00:00 Completed [facility] Influenza Virus Vaccine Quad IM 3+ YRS 2018-10-29 00:00:00 Completed [facility] Influenza Virus Vaccine Quad IM 3+ YRS 2018-10-29 00:00:00 Completed [facility] Influenza Virus Vaccine Quad IM 3+ YRS 2018-10-29 00:00:00 Completed [facility] Influenza Virus Vaccine Quad IM 3+ YRS 2018-10-29 00:00:00 Completed [facility] Influenza Virus Vaccine Quad IM 3+ YRS 2018-10-29 00:00:00 Completed [facility] Influenza Virus Vaccine Quad IM 3+ YRS 2018-10-29 00:00:00 Completed [facility] Influenza Virus Vaccine Quad IM 3+ YRS 2018-10-29 00:00:00 Completed [facility] Influenza Virus Vaccine Quad IM 3+ YRS 2018-10-29 00:00:00 Completed [facility] Influenza Virus Vaccine Quad IM 3+ YRS 2018-10-29 00:00:00 Completed [facility] Influenza Virus Vaccine Quad IM 3+ YRS 2018-10-29 00:00:00 Completed [facility] Influenza Virus Vaccine Quad IM 3+ YRS 2018-10-29 00:00:00 Completed [facility] Influenza Virus Vaccine Quad IM 3+ YRS 2018-10-29 00:00:00 Completed [facility] Influenza Virus Vaccine Quad IM 3+ YRS 2018-10-29 00:00:00 Completed [facility] Influenza Virus Vaccine Quad IM 3+ YRS 2018-10-29 00:00:00 Completed [facility] Influenza Virus Vaccine Quad IM 3+ YRS 2018-10-29 00:00:00 Completed [facility] Influenza Virus Vaccine Quad IM 3+ YRS 2018-10-29 00:00:00 Completed [facility] Influenza Virus Vaccine Quad IM 3+ YRS 2018-10-29 00:00:00 Completed [facility] Influenza Virus Vaccine Quad IM 3+ YRS 2018-10-29 00:00:00 Completed [facility] Influenza Virus Vaccine Quad IM 3+ YRS 2018-10-29 00:00:00 Completed [facility] Influenza Virus Vaccine Quad IM 3+ YRS 2018-10-29 00:00:00 Completed [facility] Influenza Virus Vaccine Quad IM 3+ YRS 2017-08-15 00:00:00 Completed [facility] Influenza Virus Vaccine Quad IM 3+ YRS 2017-08-15 00:00:00 Completed [facility] Influenza Virus Vaccine Quad IM 3+ YRS 2017-08-15 00:00:00 Completed [facility] Influenza Virus Vaccine Quad IM 3+ YRS 2017-08-15 00:00:00 Completed [facility] Influenza Virus Vaccine Quad IM 3+ YRS 2017-08-15 00:00:00 Completed [facility] Influenza Virus Vaccine Quad IM 3+ YRS 2017-08-15 00:00:00 Completed [facility] Influenza Virus Vaccine Quad IM 3+ YRS 2017-08-15 00:00:00 Completed [facility] Influenza Virus Vaccine Quad IM 3+ YRS 2017-08-15 00:00:00 Completed [facility] Influenza Virus Vaccine Quad IM 3+ YRS 2017-08-15 00:00:00 Completed [facility] Influenza Virus Vaccine Quad IM 3+ YRS 2017-08-15 00:00:00 Completed [facility] Influenza Virus Vaccine Quad IM 3+ YRS 2017-08-15 00:00:00 Completed [facility] [facility] Influenza Virus Vaccine Quad IM 3+ YRS 2017-08-15 00:00:00 Completed [facility] Influenza Virus Vaccine Quad IM 3+ YRS 2017-08-15 00:00:00 Completed [facility] Influenza Virus Vaccine Quad IM 3+ YRS 2017-08-15 00:00:00 Completed [facility] Influenza Virus Vaccine Quad IM 3+ YRS 2017-08-15 00:00:00 Completed [facility] Influenza Virus Vaccine Quad IM 3+ YRS 2017-08-15 00:00:00 Completed [facility] Influenza Virus Vaccine Quad IM 3+ YRS 2017-08-15 00:00:00 Completed [facility] Influenza Virus Vaccine Quad IM 3+ YRS 2017-08-15 00:00:00 Completed [facility] Influenza Virus Vaccine Quad IM 3+ YRS 2017-08-15 00:00:00 Completed [facility] Influenza Virus Vaccine Quad IM 3+ YRS 2017-08-15 00:00:00 Completed [facility] Influenza Virus Vaccine Quad IM 3+ YRS 2017-08-15 00:00:00 Completed [facility] Influenza Virus Vaccine Quad IM 3+ YRS 2017-08-15 00:00:00 Completed [facility] Influenza Virus Vaccine Quad IM 3+ YRS 2017-08-15 00:00:00 Completed [facility] Influenza Virus Vaccine Quad IM 3+ YRS 2017-08-15 00:00:00 Completed [facility] Influenza Virus Vaccine Quad IM 3+ YRS 2017-08-15 00:00:00 Completed [facility] Influenza Virus Vaccine Quad IM 3+ YRS 2017-08-15 00:00:00 Completed [facility] Influenza Virus Vaccine Quad IM 3+ YRS 2017-08-15 00:00:00 Completed [facility] Influenza Virus Vaccine Quad IM 3+ YRS 2017-08-15 00:00:00 Completed [facility] Influenza Virus Vaccine Quad IM 3+ YRS 2017-08-15 00:00:00 Completed [facility] Influenza Virus Vaccine Quad ID 18-64 YRS 2015-06-13 00:00:00 Completed [facility] Influenza Virus Vaccine Quad ID 18-64 YRS 2015-06-13 00:00:00 Completed [facility] Influenza Virus Vaccine Quad ID 18-64 YRS 2015-06-13 00:00:00 Completed [facility] Influenza Virus Vaccine Quad ID 18-64 YRS 2015-06-13 00:00:00 Completed [facility] Influenza Virus Vaccine Quad ID 18-64 YRS 2015-06-13 00:00:00 Completed [facility] Influenza Virus Vaccine Quad ID 18-64 YRS 2015-06-13 00:00:00 Completed [facility] Influenza Virus Vaccine Quad ID 18-64 YRS 2015-06-13 00:00:00 Completed [facility] Influenza Virus Vaccine Quad ID 18-64 YRS 2015-06-13 00:00:00 Completed [facility] Influenza Virus Vaccine Quad ID 18-64 YRS 2015-06-13 00:00:00 Completed [facility] Influenza Virus Vaccine Quad ID 18-64 YRS 2015-06-13 00:00:00 Completed [facility] Influenza Virus Vaccine Quad ID 18-64 YRS 2015-06-13 00:00:00 Completed [facility] Influenza Virus Vaccine Quad ID 18-64 YRS 2015-06-13 00:00:00 Completed [facility] Influenza Virus Vaccine Quad ID 18-64 YRS 2015-06-13 00:00:00 Completed [facility] Influenza Virus Vaccine Quad ID 18-64 YRS 2015-06-13 00:00:00 Completed [facility] Influenza Virus Vaccine Quad ID 18-64 YRS 2015-06-13 00:00:00 Completed [facility] Influenza Virus Vaccine Quad ID 18-64 YRS 2015-06-13 00:00:00 Completed [facility] Influenza Virus Vaccine Quad ID 18-64 YRS 2015-06-13 00:00:00 Completed [facility] Influenza Virus Vaccine Quad ID 18-64 YRS 2015-06-13 00:00:00 Completed [facility] Influenza Virus Vaccine Quad ID 18-64 YRS 2015-06-13 00:00:00 Completed [facility] Influenza Virus Vaccine Quad ID 18-64 YRS 2015-06-13 00:00:00 Completed [facility] Influenza Virus Vaccine Quad ID 18-64 YRS 2015-06-13 00:00:00 Completed [facility] Influenza Virus Vaccine Quad ID 18-64 YRS 2015-06-13 00:00:00 Completed [facility] Influenza Virus Vaccine Quad ID 18-64 YRS 2015-06-13 00:00:00 Completed [facility] Influenza Virus Vaccine Quad ID 18-64 YRS 2015-06-13 00:00:00 Completed [facility] Influenza Virus Vaccine Quad ID 18-64 YRS 2015-06-13 00:00:00 Completed [facility] Influenza Virus Vaccine Quad ID 18-64 YRS 2015-06-13 00:00:00 Completed [facility] Influenza Virus Vaccine Quad ID 18-64 YRS 2015-06-13 00:00:00 Completed Influenza Virus Vaccine Quad ID 18-64 YRS 2015-06-13 00:00:00 Completed Influenza Virus Vaccine Quad ID 18-64 YRS 2015-06-13 00:00:00 Completed TDAP 2011-04-23 00:00:00 Completed [facility] TDAP 2011-04-23 00:00:00 Completed [facility] TDAP 2011-04-23 00:00:00 Completed [facility] TDAP 2011-04-23 00:00:00 Completed [facility] TDAP 2011-04-23 00:00:00 Completed [facility] TDAP 2011-04-23 00:00:00 Completed [facility] TDAP 2011-04-23 00:00:00 Completed [facility] TDAP 2011-04-23 00:00:00 Completed [facility] TDAP 2011-04-23 00:00:00 Completed [facility] TDAP 2011-04-23 00:00:00 Completed [facility] TDAP 2011-04-23 00:00:00 Completed [facility] TDAP 2011-04-23 00:00:00 Completed [facility] TDAP 2011-04-23 00:00:00 Completed [facility] TDAP 2011-04-23 00:00:00 Completed [facility] TDAP 2011-04-23 00:00:00 Completed [facility] TDAP 2011-04-23 00:00:00 Completed [facility] TDAP 2011-04-23 00:00:00 Completed [facility] TDAP 2011-04-23 00:00:00 Completed [facility] TDAP 2011-04-23 00:00:00 Completed [facility] TDAP 2011-04-23 00:00:00 Completed [facility] TDAP 2011-04-23 00:00:00 Completed [facility] TDAP 2011-04-23 00:00:00 Completed [facility] TDAP 2011-04-23 00:00:00 Completed [facility] TDAP 2011-04-23 00:00:00 Completed [facility] TDAP 2011-04-23 00:00:00 Completed [facility] TDAP 2011-04-23 00:00:00 Completed [facility] TDAP 2011-04-23 00:00:00 Completed TDAP 2011-04-23 00:00:00 Completed TDAP 2011-04-23 00:00:00 Completed Influenza Virus Vaccine Quad ID 18-64 YRS Unknown Completed [facility] Influenza Virus Vaccine Quad IM 3+ YRS Unknown Completed [facility] TDAP Unknown Completed [facility] Pneumococcal Polysaccharide, PPSV23 (PNEUMOVAX) Unknown Completed [facility] Influenza Virus Vaccine Quad IM, Preserv and ABX Free 6 MO-64 YRS (FLUCELVAX) Unknown Completed [facility] Influenza Virus Vaccine Unknown Completed [facility] Influenza Virus Vaccine Quad ID 18-64 YRS Unknown Completed [facility] Influenza Virus Vaccine Quad IM 3+ YRS Unknown Completed [facility] TDAP Unknown Completed [facility] Pneumococcal Polysaccharide, PPSV23 (PNEUMOVAX) Unknown Completed [facility] Influenza Virus Vaccine Quad IM, Preserv and ABX Free 6 MO-64 YRS (FLUCELVAX) Unknown Completed [facility] Influenza Virus Vaccine Unknown Completed [facility] Influenza Virus Vaccine Quad ID 18-64 YRS Unknown Completed [facility] Influenza Virus Vaccine Quad IM 3+ YRS Unknown Completed [facility] TDAP Unknown Completed [facility] Pneumococcal Polysaccharide, PPSV23 (PNEUMOVAX) Unknown Completed [facility] Influenza Virus Vaccine Quad IM, Preserv and ABX Free 6 MO-64 YRS (FLUCELVAX) Unknown Completed [facility] Influenza Virus Vaccine Quad ID 18-64 YRS Unknown Completed [facility] Influenza Virus Vaccine Quad IM 3+ YRS Unknown Completed [facility] TDAP Unknown Completed [facility] Pneumococcal Polysaccharide, PPSV23 (PNEUMOVAX) Unknown Completed [facility] Influenza Virus Vaccine Quad ID 18-64 YRS Unknown Completed [facility] Influenza Virus Vaccine Quad IM 3+ YRS Unknown Completed [facility] TDAP Unknown Completed [facility] Pneumococcal Polysaccharide, PPSV23 (PNEUMOVAX) Unknown Completed [facility] Influenza Virus Vaccine Quad ID 18-64 YRS Unknown Completed [facility] Influenza Virus Vaccine Quad IM 3+ YRS Unknown Completed [facility] TDAP Unknown Completed [facility] Pneumococcal Polysaccharide, PPSV23 (PNEUMOVAX) Unknown Completed [facility] Influenza Virus Vaccine Quad IM, Preserv and ABX Free 6 MO-64 YRS (FLUCELVAX) Unknown Completed [facility] Influenza Virus Vaccine Unknown Completed [facility] Influenza Virus Vaccine Quad ID 18-64 YRS Unknown Completed [facility] Influenza Virus Vaccine Quad IM 3+ YRS Unknown Completed [facility] TDAP Unknown Completed [facility] Pneumococcal Polysaccharide, PPSV23 (PNEUMOVAX) Unknown Completed [facility] Influenza Virus Vaccine Quad IM, Preserv and ABX Free 6 MO-64 YRS (FLUCELVAX) Unknown Completed [facility] Influenza Virus Vaccine Unknown Completed [facility] Influenza Virus Vaccine Quad ID 18-64 YRS Unknown Completed [facility] Influenza Virus Vaccine Quad IM 3+ YRS Unknown Completed [facility] TDAP Unknown Completed [facility] Pneumococcal Polysaccharide, PPSV23 (PNEUMOVAX) Unknown Completed [facility] Influenza Virus Vaccine Quad IM, Preserv and ABX Free 6 MO-64 YRS (FLUCELVAX) Unknown Completed [facility] Influenza Virus Vaccine Unknown Completed [facility] Influenza Virus Vaccine Quad ID 18-64 YRS Unknown Completed [facility] Influenza Virus Vaccine Quad IM 3+ YRS Unknown Completed [facility] TDAP Unknown Completed [facility] Pneumococcal Polysaccharide, PPSV23 (PNEUMOVAX) Unknown Completed [facility] Influenza Virus Vaccine Quad IM, Preserv and ABX Free 6 MO-64 YRS (FLUCELVAX) Unknown Completed [facility] Influenza Virus Vaccine Unknown Completed [facility] Influenza Virus Vaccine Quad ID 18-64 YRS Unknown Completed [facility] Influenza Virus Vaccine Quad IM 3+ YRS Unknown Completed [facility] TDAP Unknown Completed [facility] Pneumococcal Polysaccharide, PPSV23 (PNEUMOVAX) Unknown Completed [facility] Influenza Virus Vaccine Quad IM, Preserv and ABX Free 6 MO-64 YRS (FLUCELVAX) Unknown Completed [facility] Influenza Virus Vaccine Unknown Completed [facility] Influenza Virus Vaccine Quad ID 18-64 YRS Unknown Completed [facility] TDAP Unknown Completed [facility] Pneumococcal Polysaccharide, PPSV23 (PNEUMOVAX) Unknown Completed [facility] Influenza Virus Vaccine Quad IM, Preserv and ABX Free 6 MO-64 YRS (FLUCELVAX) Unknown Completed [facility] Influenza Virus Vaccine Unknown Completed [facility] Influenza Virus Vaccine Quad IM 3+ YRS Unknown Completed [facility] Influenza Virus Vaccine Quad ID 18-64 YRS Unknown Completed [facility] Influenza Virus Vaccine Quad IM 3+ YRS Unknown Completed [facility] TDAP Unknown Completed [facility] Pneumococcal Polysaccharide, PPSV23 (PNEUMOVAX) Unknown Completed [facility] Influenza Virus Vaccine Quad IM, Preserv and ABX Free 6 MO-64 YRS (FLUCELVAX) Unknown Completed [facility] Influenza Virus Vaccine Unknown Completed [facility] Influenza Virus Vaccine Quad ID 18-64 YRS Unknown Completed [facility] Influenza Virus Vaccine Quad IM 3+ YRS Unknown Completed [facility] TDAP Unknown Completed [facility] Pneumococcal Polysaccharide, PPSV23 (PNEUMOVAX) Unknown Completed [facility] Influenza Virus Vaccine Quad IM, Preserv and ABX Free 6 MO-64 YRS (FLUCELVAX) Unknown Completed [facility] Influenza Virus Vaccine Unknown Completed [facility] Influenza Virus Vaccine Quad ID 18-64 YRS Unknown Completed [facility] TDAP Unknown Completed [facility] Pneumococcal Polysaccharide, PPSV23 (PNEUMOVAX) Unknown Completed [facility] Influenza Virus Vaccine Unknown Completed [facility] Influenza Virus Vaccine Quad ID 18-64 YRS Unknown Completed [facility] TDAP Unknown Completed [facility] Pneumococcal Polysaccharide, PPSV23 (PNEUMOVAX) Unknown Completed [facility] Influenza Virus Vaccine Unknown Completed [facility] Influenza Virus Vaccine Quad IM 3+ YRS Unknown Completed [facility] Influenza Virus Vaccine Quad IM, Preserv and ABX Free 6 MO-64 YRS (FLUCELVAX) Unknown Completed [facility] Influenza Virus Vaccine Quad ID 18-64 YRS Unknown Completed [facility] Influenza Virus Vaccine Quad IM 3+ YRS Unknown Completed [facility] TDAP Unknown Completed [facility] Pneumococcal Polysaccharide, PPSV23 (PNEUMOVAX) Unknown Completed [facility] Influenza Virus Vaccine Quad IM, Preserv and ABX Free 6 MO-64 YRS (FLUCELVAX) Unknown Completed [facility] Influenza Virus Vaccine Unknown Completed [facility] Influenza Virus Vaccine Quad IM 3+ YRS Unknown Completed [facility] Influenza Virus Vaccine Quad IM, Preserv and ABX Free 6 MO-64 YRS (FLUCELVAX) Unknown Completed [facility] Influenza Virus Vaccine Quad ID 18-64 YRS Unknown Completed [facility] Influenza Virus Vaccine Quad IM 3+ YRS Unknown Completed [facility] TDAP Unknown Completed [facility] Pneumococcal Polysaccharide, PPSV23 (PNEUMOVAX) Unknown Completed [facility] Influenza Virus Vaccine Quad IM, Preserv and ABX Free 6 MO-64 YRS (FLUCELVAX) Unknown Completed [facility] Influenza Virus Vaccine Unknown Completed [facility] Influenza Virus Vaccine Quad ID 18-64 YRS Unknown Completed [facility] Influenza Virus Vaccine Quad IM 3+ YRS Unknown Completed [facility] TDAP Unknown Completed [facility] Pneumococcal Polysaccharide, PPSV23 (PNEUMOVAX) Unknown Completed [facility] Influenza Virus Vaccine Quad IM, Preserv and ABX Free 6 MO-64 YRS (FLUCELVAX) Unknown Completed [facility] Influenza Virus Vaccine Unknown Completed [facility] Influenza Virus Vaccine Quad ID 18-64 YRS Unknown Completed [facility] TDAP Unknown Completed [facility] Pneumococcal Polysaccharide, PPSV23 (PNEUMOVAX) Unknown Completed [facility] Influenza Virus Vaccine Unknown Completed [facility] Influenza Virus Vaccine Quad IM 3+ YRS Unknown Completed [facility] Influenza Virus Vaccine Quad IM, Preserv and ABX Free 6 MO-64 YRS (FLUCELVAX) Unknown Completed [facility] Influenza Virus Vaccine Quad ID 18-64 YRS Unknown Completed [facility] Influenza Virus Vaccine Quad IM 3+ YRS Unknown Completed [facility] TDAP Unknown Completed [facility] Pneumococcal Polysaccharide, PPSV23 (PNEUMOVAX) Unknown Completed [facility] Influenza Virus Vaccine Quad IM, Preserv and ABX Free 6 MO-64 YRS (FLUCELVAX) Unknown Completed [facility] Influenza Virus Vaccine Unknown Completed [facility] Influenza Virus Vaccine Quad ID 18-64 YRS Unknown Completed [facility] Influenza Virus Vaccine Quad IM 3+ YRS Unknown Completed [facility] TDAP Unknown Completed [facility] Pneumococcal Polysaccharide, PPSV23 (PNEUMOVAX) Unknown Completed [facility] Influenza Virus Vaccine Quad IM, Preserv and ABX Free 6 MO-64 YRS (FLUCELVAX) Unknown Completed [facility] Influenza Virus Vaccine Unknown Completed [facility] Influenza Virus Vaccine Quad ID 18-64 YRS Unknown Completed [facility] TDAP Unknown Completed [facility] Pneumococcal Polysaccharide, PPSV23 (PNEUMOVAX) Unknown Completed [facility] Influenza Virus Vaccine Unknown Completed [facility] Influenza Virus Vaccine Quad ID 18-64 YRS Unknown Completed [facility] Influenza Virus Vaccine Quad IM 3+ YRS Unknown Completed [facility] TDAP Unknown Completed [facility] Pneumococcal Polysaccharide, PPSV23 (PNEUMOVAX) Unknown Completed [facility] Influenza Virus Vaccine Quad IM, Preserv and ABX Free 6 MO-64 YRS (FLUCELVAX) Unknown Completed [facility] Influenza Virus Vaccine Unknown Completed [facility] Influenza Virus Vaccine Quad IM 3+ YRS Unknown Completed [facility] Influenza Virus Vaccine Quad IM, Preserv and ABX Free 6 MO-64 YRS (FLUCELVAX) Unknown Completed [facility] Influenza Virus Vaccine Quad ID 18-64 YRS Unknown Completed [facility] Influenza Virus Vaccine Quad IM 3+ YRS Unknown Completed [facility] TDAP Unknown Completed [facility] Pneumococcal Polysaccharide, PPSV23 (PNEUMOVAX) Unknown Completed [facility] Influenza Virus Vaccine Quad IM, Preserv and ABX Free 6 MO-64 YRS (FLUCELVAX) Unknown Completed [facility] Influenza Virus Vaccine Unknown Completed [facility] Influenza Virus Vaccine Quad ID 18-64 YRS Unknown Completed [facility] TDAP Unknown Completed [facility] Pneumococcal Polysaccharide, PPSV23 (PNEUMOVAX) Unknown Completed [facility] Influenza Virus Vaccine Unknown Completed [facility] Influenza Virus Vaccine Quad IM 3+ YRS Unknown Completed [facility] Influenza Virus Vaccine Quad IM, Preserv and ABX Free 6 MO-64 YRS (FLUCELVAX) Unknown Completed [facility] Influenza Virus Vaccine Quad ID 18-64 YRS Unknown Completed [facility] Influenza Virus Vaccine Quad IM 3+ YRS Unknown Completed [facility] TDAP Unknown Completed [facility] Pneumococcal Polysaccharide, PPSV23 (PNEUMOVAX) Unknown Completed [facility] Influenza Virus Vaccine Quad IM, Preserv and ABX Free 6 MO-64 YRS (FLUCELVAX) Unknown Completed [facility] Influenza Virus Vaccine Unknown Completed [facility] Influenza Virus Vaccine Quad ID 18-64 YRS Unknown Completed [facility] Influenza Virus Vaccine Quad IM 3+ YRS Unknown Completed [facility] TDAP Unknown Completed [facility] Pneumococcal Polysaccharide, PPSV23 (PNEUMOVAX) Unknown Completed [facility] Influenza Virus Vaccine Quad IM, Preserv and ABX Free 6 MO-64 YRS (FLUCELVAX) Unknown Completed [facility] Influenza Virus Vaccine Unknown Completed [facility] Influenza Virus Vaccine Quad ID 18-64 YRS Unknown Completed [facility] Influenza Virus Vaccine Quad IM 3+ YRS Unknown Completed [facility] TDAP Unknown Completed [facility] Pneumococcal Polysaccharide, PPSV23 (PNEUMOVAX) Unknown Completed [facility] Influenza Virus Vaccine Quad IM, Preserv and ABX Free 6 MO-64 YRS (FLUCELVAX) Unknown Completed [facility] Influenza Virus Vaccine Unknown Completed [facility] Influenza Virus Vaccine Quad ID 18-64 YRS Unknown Completed [facility] Influenza Virus Vaccine Quad IM 3+ YRS Unknown Completed [facility] TDAP Unknown Completed [facility] Pneumococcal Polysaccharide, PPSV23 (PNEUMOVAX) Unknown Completed [facility] Influenza Virus Vaccine Quad IM, Preserv and ABX Free 6 MO-64 YRS (FLUCELVAX) Unknown Completed [facility] Influenza Virus Vaccine Unknown Completed [facility] Influenza Virus Vaccine Quad ID 18-64 YRS Unknown Completed [facility] Influenza Virus Vaccine Quad IM 3+ YRS Unknown Completed [facility] TDAP Unknown Completed [facility] Pneumococcal Polysaccharide, PPSV23 (PNEUMOVAX) Unknown Completed [facility] Influenza Virus Vaccine Quad IM, Preserv and ABX Free 6 MO-64 YRS (FLUCELVAX) Unknown Completed [facility] Influenza Virus Vaccine Unknown Completed [facility] Influenza Virus Vaccine Quad ID 18-64 YRS Unknown Completed [facility] Influenza Virus Vaccine Quad IM 3+ YRS Unknown Completed [facility] TDAP Unknown Completed [facility] Pneumococcal Polysaccharide, PPSV23 (PNEUMOVAX) Unknown Completed [facility] Influenza Virus Vaccine Quad IM, Preserv and ABX Free 6 MO-64 YRS (FLUCELVAX) Unknown Completed [facility] Influenza Virus Vaccine Unknown Completed [facility] Influenza Virus Vaccine Quad ID 18-64 YRS Unknown Completed [facility] Influenza Virus Vaccine Quad IM 3+ YRS Unknown Completed [facility] TDAP Unknown Completed [facility] Pneumococcal Polysaccharide, PPSV23 (PNEUMOVAX) Unknown Completed [facility] Influenza Virus Vaccine Quad ID 18-64 YRS Unknown Completed [facility] Influenza Virus Vaccine Quad IM 3+ YRS Unknown Completed [facility] TDAP Unknown Completed [facility] Pneumococcal Polysaccharide, PPSV23 (PNEUMOVAX) Unknown Completed [facility] Influenza Virus Vaccine Quad IM, Preserv and ABX Free 6 MO-64 YRS (FLUCELVAX) Unknown Completed [facility] Influenza Virus Vaccine Unknown Completed [facility] Influenza Virus Vaccine Quad ID 18-64 YRS Unknown Completed [facility] Influenza Virus Vaccine Quad IM 3+ YRS Unknown Completed [facility] TDAP Unknown Completed [facility] Pneumococcal Polysaccharide, PPSV23 (PNEUMOVAX) Unknown Completed [facility] Influenza Virus Vaccine Quad IM, Preserv and ABX Free 6 MO-64 YRS (FLUCELVAX) Unknown Completed [facility] Influenza Virus Vaccine Unknown Completed [facility] Influenza Virus Vaccine Quad ID 18-64 YRS Unknown Completed [facility] Influenza Virus Vaccine Quad IM 3+ YRS Unknown Completed [facility] TDAP Unknown Completed [facility] Pneumococcal Polysaccharide, PPSV23 (PNEUMOVAX) Unknown Completed [facility] Influenza Virus Vaccine Quad IM, Preserv and ABX Free 6 MO-64 YRS (FLUCELVAX) Unknown Completed [facility] Influenza Virus Vaccine Unknown Completed [facility] Influenza Virus Vaccine Quad ID 18-64 YRS Unknown Completed [facility] Influenza Virus Vaccine Quad IM 3+ YRS Unknown Completed [facility] TDAP Unknown Completed [facility] Pneumococcal Polysaccharide, PPSV23 (PNEUMOVAX) Unknown Completed [facility] Influenza Virus Vaccine Quad IM, Preserv and ABX Free 6 MO-64 YRS (FLUCELVAX) Unknown Completed [facility] Influenza Virus Vaccine Unknown Completed [facility] Influenza Virus Vaccine Quad ID 18-64 YRS Unknown Completed [facility] Influenza Virus Vaccine Quad IM 3+ YRS Unknown Completed [facility] TDAP Unknown Completed [facility] Pneumococcal Polysaccharide, PPSV23 (PNEUMOVAX) Unknown Completed [facility] Influenza Virus Vaccine Quad IM, Preserv and ABX Free 6 MO-64 YRS (FLUCELVAX) Unknown Completed [facility] Influenza Virus Vaccine Unknown Completed [facility] Influenza Virus Vaccine Quad ID 18-64 YRS Unknown Completed [facility] Influenza Virus Vaccine Quad IM 3+ YRS Unknown Completed [facility] TDAP Unknown Completed [facility] Pneumococcal Polysaccharide, PPSV23 (PNEUMOVAX) Unknown Completed [facility] Influenza Virus Vaccine Quad IM, Preserv and ABX Free 6 MO-64 YRS (FLUCELVAX) Unknown Completed [facility] Influenza Virus Vaccine Unknown Completed [facility] Influenza Virus Vaccine Quad ID 18-64 YRS Unknown Completed [facility] Influenza Virus Vaccine Quad IM 3+ YRS Unknown Completed [facility] TDAP Unknown Completed [facility] Pneumococcal Polysaccharide, PPSV23 (PNEUMOVAX) Unknown Completed [facility] Influenza Virus Vaccine Quad IM, Preserv and ABX Free 6 MO-64 YRS (FLUCELVAX) Unknown Completed [facility] Influenza Virus Vaccine Unknown Completed [facility] Influenza Virus Vaccine Quad ID 18-64 YRS Unknown Completed [facility] Influenza Virus Vaccine Quad IM 3+ YRS Unknown Completed [facility] TDAP Unknown Completed [facility] Pneumococcal Polysaccharide, PPSV23 (PNEUMOVAX) Unknown Completed [facility] Influenza Virus Vaccine Quad IM, Preserv and ABX Free 6 MO-64 YRS (FLUCELVAX) Unknown Completed [facility] Influenza Virus Vaccine Unknown Completed [facility] Vital Signs Vital Name Observation Time Observation Value Comments S mary carmen Systolic blood pressure 2024-06-09 21:52:00 147 mm[Hg] [facility] Diastolic blood pressure 2024-06-09 21:52:00 81 mm[Hg] [facility] Heart rate 2024-06-09 15:36:00 74 /min [facility] Body temperature 2024-06-09 15:36:00 36.72 Nelida [facility] Body height 2024-06-09 15:36:00 175.3 cm [facility] Body weight 2024-06-09 15:36:00 149.37 kg [facility] BMI 2024-06-09 15:36:00 48.63 kg/m2 [facility] Oxygen saturation in Arterial blood by Pulse oximetry 2024-06-09 15:36:00 96 /min [facility] Systolic blood pressure 2024-04-23 14:38:00 116 mm[Hg] [facility] Diastolic blood pressure 2024-04-23 14:38:00 76 mm[Hg] [facility] Heart rate 2024-04-23 14:38:00 83 /min [facility] Body height 2024-04-23 14:38:00 175.3 cm [facility] Body weight 2024-04-23 14:38:00 145.332 kg [facility] BMI 2024-04-23 14:38:00 47.31 kg/m2 [facility] Oxygen saturation in Arterial blood by Pulse oximetry 2024-04-23 14:38:00 96 /min [facility] BMI (Body Mass Index) 2024-04-16 00:00:00 48.1 kg/m2 [facility] Height 2024-04-16 00:00:00 69 [in_i] [facility] Weight 2024-04-16 00:00:00 326 [lb_av] [facility] BP Systolic 2024-04-16 00:00:00 146 mm[Hg] [facility] BP Diastolic 2024-04-16 00:00:00 90 mm[Hg] [facility] Systolic blood pressure 2023 15:41:00 133 mm[Hg] [facility] Diastolic blood pressure 2023 15:41:00 81 mm[Hg] [facility] Heart rate 2023 15:41:00 86 /min [facility] Body temperature 2023 15:41:00 36.39 Nelida [facility] Body height 2023 15:41:00 175.3 cm Univ [facility] Body weight 2023 15:41:00 145.968 kg [facility] BMI 2023 15:41:00 47.52 kg/m2 [facility] Oxygen saturation in Arterial blood by Pulse oximetry 2023 15:41:00 96 /min [facility] Systolic blood pressure 2023-09-09 15:46:00 126 mm[Hg] [facility] Diastolic blood pressure 2023-09-09 15:46:00 78 mm[Hg] [facility] Heart rate 2023-09-09 15:45:00 72 /min Un[facility] Body temperature 2023-09-09 15:45:00 36.78 Nelida [facility] Respiratory rate 2023-09-09 15:45:00 18 /min [facility] Body height 2023-09-09 15:45:00 175.3 cm [facility] Body weight 2023-09-09 15:45:00 147.963 kg [facility] BMI 2023-09-09 15:45:00 48.17 kg/m2 [facility] Oxygen saturation in Arterial blood by Pulse oximetry 2023-09-09 15:45:00 95 /min [facility] Systolic blood pressure 2023-05-17 16:14:00 150 mm[Hg] [facility] Diastolic blood pressure 2023-05-17 16:14:00 80 mm[Hg] [facility] Heart rate 2023-05-17 16:10:00 94 /min [facility] Body temperature 2023-05-17 16:10:00 36.44 Nelida [facility] Respiratory rate 2023-05-17 16:10:00 20 /min [facility] Body height 2023-05-17 16:10:00 175.3 cm [facility] 2023-05-17 16:10:00 143.79 kg [facility] BMI 2023-05-17 16:10:00 46.81 kg/m2 [facility] Oxygen saturation in Arterial blood by Pulse oximetry 2023-05-17 16:10:00 98 /min [facility] Systolic blood pressure 2023-05-17 16:23:00 133 mm[Hg] [facility] Diastolic blood pressure 2023-05-17 16:23:00 78 mm[Hg] [facility] Heart rate 2023-05-17 16:23:00 83 /min [facility] Res[facility] 2023-05-17 16:23:00 20 /min [facility] Body height 2023-05-17 16:23:00 175.3 cm [facility] weight 2023-05-17 16:23:00 144.697 kg [facility] BMI 2023-05-17 16:23:00 47.11 kg/m2 [facility] Oxygen saturation in Arterial blood by Pulse oximetry 2023-05-17 16:23:00 98 /min [facility] Systolic blood pressure 2023-04-19 13:51:00 133 mm[Hg] [facility] Diastolic blood pressure 2023-04-19 13:51:00 78 mm[Hg] [facility] Heart rate 2023-04-19 13:51:00 83 /min [facility] Res[facility] rate 2023-04-19 13:51:00 18 /min [facility] Body height 2023-04-19 13:51:00 175.3 cm [facility] Body weight 2023-04-19 13:51:00 145.015 kg [facility] BMI 2023-04-19 13:51:00 47.21 kg/m2 [facility] Oxygen saturation in Arterial blood by Pulse oximetry 2023-04-19 13:51:00 97 /min [facility] Systolic blood pressure 2023-01-15 15:29:00 139 mm[Hg] [facility] Diastolic blood pressure 2023-01-15 15:29:00 81 mm[Hg] [facility] Heart rate 2023-01-15 15:29:00 106 /min [facility] Body temperature 2023-01-15 15:29:00 36.17 Nelida [facility] Respiratory rate 2023-01-15 15:29:00 18 /min [facility] Body height 2023-01-15 15:29:00 175.3 cm [facility] Body weight 2023-01-15 15:29:00 148.417 kg [facility] BMI 2023-01-15 15:29:00 48.32 kg/m2 [facility] Oxygen saturation in Arterial blood by Pulse oximetry 2023-01-15 15:29:00 96 /min [facility] Systolic blood pressure 2022-09-12 17:32:00 150 mm[Hg] [facility] Diastolic blood pressure 2022-09-12 17:32:00 77 mm[Hg] [facility] Heart rate 2022-09-12 17:27:00 68 /min [facility] Body temperature 2022-09-12 17:27:00 35.94 Nelida [facility] Respiratory rate 2022-09-12 17:27:00 18 /min [facility] Body height 2022-09-12 17:27:00 175.3 cm [facility] Body weight 2022-09-12 17:27:00 147.691 kg [facility] BMI 2022-09-12 17:27:00 48.08 kg/m2 [facility] Oxygen saturation in Arterial blood by Pulse oximetry 2022-09-12 17:27:00 93 /min [facility] Systolic blood pressure 2022-05-18 13:10:00 153 mm[Hg] [facility] Diastolic blood pressure 2022-05-18 13:10:00 80 mm[Hg] [facility] Heart rate 2022-05-18 13:10:00 97 /min [facility] Body height 2022-05-18 13:10:00 175.3 cm [facility] Body weight 2022-05-18 13:10:00 151.501 kg [facility] BMI 2022-05-18 13:10:00 49.32 kg/m2 [facility] Oxygen saturation in Arterial blood by Pulse oximetry 2022-05-18 13:10:00 96 /min [facility] Systolic blood pressure 2022-04-26 19:58:00 118 mm[Hg] [facility] Diastolic blood pressure 2022-04-26 19:58:00 76 mm[Hg] [facility] Heart rate 2022-04-26 19:58:00 85 /min [facility] Body temperature 2022-04-26 19:58:00 35.89 Nelida [facility] Respiratory rate 2022-04-26 19:58:00 18 /min [facility] Body height 2022-04-26 19:58:00 175.3 cm [facility] Body weight 2022-04-26 19:58:00 151.501 kg [facility] BMI 2022-04-26 19:58:00 49.32 kg/m2 [facility] Oxygen saturation in Arterial blood by Pulse oximetry 2022-04-26 19:58:00 95 /min [facility] Procedures Procedure Date / Time Performed Performing Clinician Source FREE T4 2024-06-11 14:55:00 [facility] 2024-06-11 14:55:00 Paula John [facility] COMP. METABOLIC PANEL (82446) 2024-06-11 14:55:00 Paula John [facility] LIPID PANEL (16994)(TOTAL CHOLESTEROL, TRIGLYCERIDES, HDL) 2024-06-11 14:55:00 Paula John [facility] CBC WITH DIFF 2024-06-11 14:55:00 Paula John U [facility] GLYCOSYLATED HEMOGLOBIN (A1C) 2024-06-11 14:55:00 Paula John [facility] FREE T3 2024-06-11 14:55:00 Paula John Un [facility] MAMMO, screening, digital, bilateral 2024-04-16 00:00:00 [facility] US TRANSVAGINAL 2024-04-09 00:00:00 [facility] POCT HEMOGLOBIN A1C TEST 2023 00:00:00 Paula John [facility] REFERRAL- REQUEST/RESPONSE 2023-10-21 06:01:00 Doctor Unassigned, [place] [facility] DME/SUPPLY JUSTIFICATION 2023-09-12 06:01:00 Doc tor Unassigned, [place] [facility] FREE T4 2023-09-09 16:34:00 Orestes Rushing [facility] THYROID STIMULATING HORMONE 2023-09-09 16:34:00 Orestes Rushing [facility] MICROALBUMIN URINE 2023-09-09 16:34:00 Vanessa Rushing [facility] COMP. METABOLIC PANEL (11061) 2023-09-09 16:34:00 Oresets Rushing [facility] LIPID PANEL (47212)(TOTAL CHOLESTEROL, TRIGLYCERIDES, HDL) 2023-09-09 16:34:00 Orestes Rushing [facility] CBC WITH DIFF 2023-09-09 16:34:00 Orestes Rushing U [facility] GLYCOSYLATED HEMOGLOBIN (A1C) 2023-09-09 16:34:00 Orestes Rushing [facility] FREE T3 2023-09-09 16:34:00 Orestes Rushing [facility] HIV 1/2 AG-AB WITH REFLEX 2023-09-09 16:34:00 Obi-Orestes Portillo [facility] FLU VACC (), 6 MO-64 YRS, .5ML, IM, QUAD (FLUCELVAX) 2023-09-09 16:04:06 Obi-Orestes Lion [facility] REFERRAL- REQUEST/RESPONSE 2023-08-19 06:01:00 Doctor Unassigned, [place] [facility] REFERRAL- REQUEST/RESPONSE 2023-06-28 05:01:00 Doctor Unassigned, [place] [facility] OP CORRESPONDENCE 2023-05-30 05:01:00 Doctor Amara ssigned, [place] [facility] DME/SUPPLY JUSTIFICATION 2023-05-24 05:01:00 Doc tor Unassigned, [place] [facility] PATIENT FINANCIAL POLICY 2023-01-15 15:22:36 Doctor Unassigned, [place] [facility] POCT HEMOGLOBIN A1C TEST 2022-09-12 17:44:00 Paula John [facility] ASSIGNMENT OF BENEFITS 2022-09-12 17:14:55 Docto r Unassigned, [place] [facility] REFERRAL- REQUEST/RESPONSE 2022-06-22 05:01:00 Doctor Unassigned, [place] [facility] Orthopedic - Knee Replacement 2018-09-02 00:00:00 [facility] Medical Hysteroscopy Biopsy 2018-09-02 00:00:00 [facility] Breast Biopsy 2013-09-02 00:00:00 [facility] Medical Carpal Tunnel Surgery 2010-09-02 00:00:00 [facility] Medical Orthopedic - Knee Replacement 2009-09-02 00:00:00 [facility] Medical Encounters Start Date/Time End Date/Time Encounter Type Admission Type Attending Clinicians Care Facility Care Department Encounter ID Source 2024-09-09 12:00:00 2024-09-09 12:00:00 Outpatient R PAULA JOHN OGECHUKWU [facility] [id number] [facility] 2024-06-19 00:00:00 2024-06-29 10:23:01 Telephone Darshan Johnwu [facility] 1.2.840.114 350.1.13.10 4.2.7.2.686 [id number] [facility] 2024-06-18 00:00:00 2024-06-23 22:47:03 Refill Orestes Rushing [facility] 1.2.840.114 350.1.13.10 4.2.7.2.686 [id number] [facility] 2024-06-22 00:00:00 2024-06-22 10:27:33 Telephone Lauren Paula [facility] 1.2.840.114 350.1.13.10 4.2.7.2.686 [id number] [facility] 2024-06-12 00:00:00 2024-06-16 08:21:20 Refill Lauren Paula [facility] 1.2.840.114 350.1.13.10 4.2.7.2.686 [id number] [facility] 2024-06-11 10:15:00 2024-06-11 10:30:00 Cytology Supervisor Visit 2, Adc Lab Paula John 2, Adc Lab [facility] 1.2.840.114 350.1.13.10 4.2.7.2.686 [id number] [facility] 2024-06-11 10:15:00 2024-06-11 10:15:00 Outpatient R PAULA JOHN OGECHUKWU [facility] [id number] [facility] 2024-06-09 00:00:00 2024-06-09 11:41:42 Telephone Paula John [facility] 1.2.840.114 350.1.13.10 4.2.7.2.686 [id number] [facility] 2024-06-09 10:30:00 2024-06-09 11:17:17 Outpatient R PAULA JOHN OGECHUKWU [facility] [id number] [facility] 2024-06-09 10:30:00 2024-06-09 11:17:17 Office Visit Paula John [facility] 1.2.840.114 350.1.13.10 4.2.7.2.686 [id number] [facility] 2024-06-08 00:00:00 2024-06-08 10:55:59 Telephone Paula John [facility] 1.2.840.114 350.1.13.10 4.2.7.2.686 [id number] [facility] 2024-05-28 00:00:00 2024-05-29 17:00:16 Refill Paula John [facility] 1.2.840.114 350.1.13.10 4.2.7.2.686 [id number] [facility] 2024-04-24 00:00:00 2024-04-24 14:33:14 Refill Paula John [facility] 1.2.840.114 350.1.13.10 4.2.7.2.686 [id number] [facility] 2024-04-24 00:00:00 2024-04-24 14:04:09 Refill Oscar Walker [facility] 1.2.840.114 350.1.13.10 4.2.7.2.686 [id number] [facility] 2024-04-23 10:30:00 2024-04-23 10:45:00 Cytology Supervisor Visit Lab, Ang - Oscar Meneses Lab, Ang - [facility] 1.2.840.114 350.1.13.10 4.2.7.2.686 [id number] [facility] 2024-04-23 10:00:00 2024-04-23 10:24:54 Outpatient OSCAR PULIDO [facility] [id number] [facility] 2024-04-23 10:00:00 2024-04-23 10:24:54 Office Visit Greg Oscar [facility] 1.2.840.114 350.1.13.10 4.2.7.2.686 [id number] [facility] 2024-04-16 00:00:00 2024-04-21 10:55:28 Telephone Paula John [facility] 1.2.840.114 350.1.13.10 4.2.7.2.686 [id number] [facility] 2024-04-20 09:00:00 2024-04-20 09:00:00 Outpatient R OSCAR WALKER [facility] [id number] [facility] 2024-04-16 00:00:00 2024-04-16 00:00:00 CAMILO Allred: Charity Romero, [address] [address], [place] [address] , Ph. [facility] - GC_GCBZW_Zara [facility]* [id number] [facility] 2024-04-09 00:00:00 2024-04-09 00:00:00 Yanet Hui MD: [address] Rom[address], [facility] [address], [place] [address] , Ph. [facility] - GC_GCBZW_La lloyd Lombardi* [id number] [facility] 2024-03-18 00:00:00 2024-03-23 17:54:13 [facility] 1.2.840.114 350.1.13.10 4.2.7.2.686 [id number] [facility] 2024-03-11 00:00:00 2024-03-11 15:08:01 Refill Lauren [facility] 1.2.840.114 350.1.13.10 4.2.7.2.686 [id number] [facility] 2024-03-07 00:00:00 2024-03-10 14:46:39 Refill Lauren [facility] 1.2.840.114 350.1.13.10 4.2.7.2.686 [id number] [facility] 2020-09-10 00:00:00 2024-02-18 02:21:18 Mobile Device Encounter Mere Marrufo [facility] 1.2.840.114 350.1.13.10 4.2.7.2.686 [id number] [facility] 2024-02-07 00:00:00 2024-02-11 18:09:42 Refill Lauren [facility] 1.2.840.114 350.1.13.10 4.2.7.2.686 [id number] [facility] 2024-01-07 00:00:00 2024-01-07 10:53:34 Letter (Out) [facility] 1.2.840.114 350.1.13.10 4.2.7.2.686 [id number] [facility] 2024-01-07 00:00:00 2024-01-07 09:52:48 Letter (Out) [facility] 1.2.840.114 350.1.13.10 4.2.7.2.686 [id number] [facility] 2023-12-17 00:00:00 2023-12-17 00:00:00 Telephone Paula John [facility] 1.2.840.114 350.1.13.10 4.2.7.2.686 [id number] [facility] 2023-12-12 00:00:00 2023-12-12 00:00:00 Refill Paula John [facility] 1.2.840.114 350.1.13.10 4.2.7.2.686 [id number] [facility] 2023 10:30:00 2023 11:53:26 Outpatient R PAULA JHON OGECHUKWU [facility] [id number] [facility] 2023 10:30:00 2023 11:53:26 Office Visit Paula John [facility] 1.2.840.114 350.1.13.10 4.2.7.2.686 [id number] [facility] 2023-11-04 00:00:00 2023-11-04 00:00:00 [facility] 1.2.840.114 350.1.13.10 4.2.7.2.686 [id number] [facility] 2023-10-21 00:00:00 2023-10-21 00:00:00 Telephone Paula John [facility] 1.2.840.114 350.1.13.10 4.2.7.2.686 [id number] [facility] 2023-10-21 00:00:00 2023-10-21 00:00:00 Orders Only Doctor Unassigned, [place] [facility] 1.2840.114 350.1.13.10 4.2.7.2.686 [id number] [facility] 2023-10-10 00:00:00 2023-10-10 00:00:00 Outpatient GC_GCBZW_Ka diyala_S PRIV PRIV [id number] [facility] 2023-10-02 00:00:00 2023-10-02 00:00:00 Outpatient GC_GCBZW_Ka diyala_S PRIV PRIV [id number] [facility] 2023-09-19 00:00:00 2023-09-19 00:00:00 Telephone Orestes Rushing [facility] 1..840.114 350.1.13.10 4.2.7.2.686 [id number] [facility] 2023-09-12 00:00:00 2023-09-12 00:00:00 Telephone Gen [facility] BUILDING 1.2.840.114 350.1.13.10 4.2.7.2.686 [id number] 044 [id number] [facility] 2023-09-12 00:00:2023-09-12 00:00:00 Orders Only Doctor Unassigned, [place] [facility] 1.2840.114 350.1.13.10 4.2.7.2.686 [id number] [id number] [facility] 2023-09-11 00:00:00 2023-09-11 00:00:00 Patient Outreach Nirmala Posada [facility] BUILDING 1.2.840.114 350.1.13.10 4.2.7.2.686 [id number] 044 [id number] [facility] 2023-09-10 00:00:00 2023-09-10 00:00:00 Telephone Gen [facility] 1.2.840.114 350.1.13.10 4.2.7.2.686 [id number] 044 [id number] [facility] 2023-09-09 16:15:00 2023-09-09 16:15:00 Cytology Supervisor Visit 2, Adc Lab Gen [facility] 1.2.840.114 350.1.13.10 4.2.7.2.686 [id number] 353 [id number] [facility] 2023-09-09 09:40:00 2023-09-09 10:13:42 Outpatient R O[facility]ES [facility] [id number] [facility] 2023-09-09 09:40:00 2023-09-09 10:13:42 Office Visit Gen [facility] 1.2.840.114 350.1.13.10 4.2.7.2.686 [id number] 044 [id number] [facility] 2023-09-09 00:00:00 2023-09-09 00:00:00 Telephone Paula John [facility] 1.2.840.114 350.1.13.10 4.2.7.2.686 [id number] 044 [id number] [facility] 2023-09-02 00:00:00 2023-09-02 00:00:00 Telephone Orestes Rushing [facility] 1.2.840.114 350.1.13.10 4.2.7.2.686 [id number] 044 [id number] [facility] 2023-08-19 00:00:00 2023-08-19 00:00:00 Telephone Paula John [facility] 1.2.840.114 350.1.13.10 4.2.7.2.686 [id number] 044 [id number] [facility] 2023-08-19 00:00:00 2023-08-19 00:00:00 Orders Only Doctor Unassigned, [place] [facility] 1.2.840.114 350.1.13.10 4.2.7.2.686 [id number] [id number] [facility] 2023-07-31 00:00:00 2023-07-31 00:00:00 Refill Paula John [facility] 1.2.840.114 350.1.13.10 4.2.7.2.686 [id number] 044 [id number] [facility] 2023-06-28 00:00:00 2023-06-28 00:00:00 Orders Only Doctor Unassigned, [place] [facility] 1.2.840.114 350.1.13.10 4.2.7.2.686 [id number] [id number] [facility] 2023-06-17 00:00:00 2023-06-17 00:00:00 Telephone Paula John [facility] BUILDING 1.2840.114 350.1.13.10 4.2.7.2.686 [id number] 044 [id number] [facility] 2023-05-31 00:00:00 2023-05-31 00:00:00 Refill Paula John [facility] BUILD[facility] 1.2840.114 350.1.13.10 4.2.7.2.686 [id number] 044 [id number] [facility] 2023-05-30 00:00:00 2023-05-30 00:00:00 Orders Only Doctor Unassigned, [place] [facility] 1.2840.114 350.1.13.10 4.2.7.2.686 [id number] [id number] [facility] 2023-05-24 00:00:00 2023-05-24 00:00:00 Orders Only Doctor Unassigned, [place] [facility] 1.2840.114 350.1.13.10 4.2.7.2.686 [id number] 009 [id number] [facility] 2023-05-23 00:00:00 2023-05-23 00:00:00 Telephone Paula John [facility] BUILDING 1.2840.114 350.1.13.10 4.2.7.2.686 [id number] 044 [id number] [facility] 2023-05-17 11:30:00 2023-05-17 16:26:04 Outpatient R PAULA JOHN OGECHUKWU [facility] [id number] [facility] 2023-05-17 11:30:00 2023-05-17 16:26:04 Office Visit Paula John [facility] BUILDING 1.2840.114 350.1.13.10 4.2.7.2.686 [id number] 044 [id number] [facility] 2023-05-17 11:00:00 2023-05-17 11:54:36 Office Visit Paula John [facility] BUILDING 1.2.840.114 350.1.13.10 4.2.7.2.686 [id number] 044 [id number] [facility] 2023-04-19 08:30:00 2023-04-19 09:22:39 [facility] [id number] [facility] 2023-04-19 08:30:00 2023-04-19 09:22:39 [facility] 1.2.840.114 350.1.13.10 4.2.7.2.686 [id number] [facility] 2023-04-03 00:00:00 2023-04-03 00:00:00 Outpatient GC_GCBZW_Ka diyala_S PRIV PRIV [id number] [facility] 2023-04-03 00:00:00 2023-04-03 00:00:00 Outpatient GC_GCBZW_Ka diyala_S PRIV PRIV [id number] [facility] 2023-04-03 00:00:00 2023-04-03 00:00:00 Outpatient GC_GCBZW_Ka diyala_S PRIV PRIV [id number] [facility] 2023-04-01 00:00:00 2023-04-01 00:00:00 Telephone Paula John [facility] 1.2.840.114 350.1.13.10 4.2.7.2.686 [id number] [id number] [facility] 2023-03-26 00:00:00 2023-03-26 00:00:00 Outpatient GC_GCBZW_Ka diyala_S PRIV PRIV [id number] [facility] 2023-03-18 00:00:00 2023-03-18 00:00:00 Outpatient GC_GCBZW_Ka diyala_S PRIV PRIV [id number] [facility] 2023-03-18 00:00:00 2023-03-18 00:00:00 Outpatient GC_GCBZW_Ka diyala_S PRIV PRIV [id number] [facility] 2023-03-15 00:00:00 2023-03-15 00:00:00 Outpatient GC_GCBZW_Ka diyala_S PRIV PRIV [id number] [facility] 2023-01-19 00:00:00 2023-01-19 00:00:00 Telephone Paula John [facility] BUILDING 1.2.840.114 350.1.13.10 4.2.7.2.686 [id number] 044 [id number] [facility] 2023-01-15 11:30:00 2023-01-15 11:45:00 Cytology Supervisor Visit 2, Adc Lab Paula John [facility] BUILDING 1.2.840.114 350.1.13.10 4.2.7.2.686 [id number] [facility] 2023-01-15 10:30:00 2023-01-15 10:59:08 Outpatient R PAULA JOHN OGECHUKWU [facility] [id number] [facility] 2023-01-15 10:30:00 2023-01-15 10:59:08 Office Visit Paula John [facility] BUILDING 1.2.840.114 350.1.13.10 4.2.7.2.686 [id number] 044 [id number] [facility] 2023-01-15 00:00:00 2023-01-15 00:00:00 Orders Only Doctor Unassigned, [place] [facility] 1.2.840.114 350.1.13.10 4.2.7.2.686 [id number] [id number] [facility] 2022-12-31 00:00:00 2022-12-31 00:00:[address] [facility] 1.2.840.114 350.1.13.10 4.2.7.2.686 [id number] [facility] 2022-11-28 00:00:00 2022-11-28 00:00:00 Refill Paula John [facility] BUILDING 1.2.840.114 350.1.13.10 4.2.7.2.686 [id number] 044 [id number] [facility] 2022-10-01 00:00:00 2022-10-01 00:00:00 Telephone Lauren, Paula [facility] BUILDING 1.2.840.114 350.1.13.10 4.2.7.2.686 [id number] 044 [id number] [facility] 2022-09-12 11:30:00 2022-09-12 12:15:01 Outpatient R PAULA JOHN OGECHUKWU [facility] [id number] [facility] 2022-09-12 11:30:00 2022-09-12 12:15:01 Office Visit Paula John [facility] 1.2.840.114 350.1.13.10 4.2.7.2.686 [id number] 044 [id number] [facility] 2022-09-12 00:00:00 2022-09-12 00:00:00 Orders Only Doctor Unassigned, [place] [facility] 1.2.840.114 350.1.13.10 4.2.7.2.686 [id number] [id number] [facility] 2022-08-20 09:00:00 2022-08-20 09:00:00 Outpatient R PAULA JOHN OGECHUKWU [facility] [id number] [facility] 2022-07-03 00:00:00 2022-07-03 00:00:00 Telephone Mere Marrufo [facility] BUILDING 1.2.840.114 350.1.13.10 4.2.7.2.686 [id number] 044 [id number] [facility] 2022-06-29 11:00:00 2022-06-29 11:13:39 Cytology Supervisor Visit 2, Adc Lab Mere Marrufo [facility] BUILDING 1.2.840.114 350.1.13.10 4.2.7.2.686 [id number] [facility] 2022-06-29 11:00:00 2022-06-29 11:00:00 Outpatient R MERE MARRUFO [facility] [id number] [facility] 2022-06-29 00:00:00 2022-06-29 00:00:00 RefSilvana Bose [facility] BUILDING 1.2.840.114 350.1.13.10 4.2.7.2.686 [id number] 231 [id number] [facility] 2022-06-29 00:00:00 2022-06-29 00:00:00 Refill Mere Marrufo [facility] BUILDING 1.2.840.114 350.1.13.10 4.2.7.2.686 [id number] 231 [id number] [facility] 2022-06-28 00:00:00 2022-06-28 00:00:00 Telephone Mere Marrufo [facility] BUILDING 1.2.840.114 350.1.13.10 4.2.7.2.686 [id number] 231 [id number] [facility] 2022-06-22 00:00:00 2022-06-22 00:00:00 Telephone Mere Marrufo [facility] BUILDING 1.2840.114 350.1.13.10 4.2.7.2.686 [id number] 044 [id number] [facility] 2022-06-22 00:00:00 2022-06-22 00:00:00 Orders Only Doctor Unassigned, [place] [facility] 1.2840.114 350.1.13.10 4.2.7.2.686 [id number] [facility] 2022-06-14 00:00:00 2022-06-14 00:00:00 Refill Mere Marrufo [facility] BUILDING 1.2840.114 350.1.13.10 4.2.7.2.686 [id number] [facility] 2022-06-12 00:00:00 2022-06-12 00:00:00 Refill Ananda [facility] 1.2.840.114 350.1.13.10 4.2.7.2.686 [id number] 092 [id number] [facility] 2022-05-19 00:00:00 2022-05-19 00:00:00 Telephone Ananda Prince [facility] 1.284.114 350.1.13.10 4.2.7.2.686 [id number] [id number] [facility] 2022-05-18 08:20:00 2022-05-18 11:42:35 Outpatient R ANANDA PRINCE HOWARD [facility] [id number] [facility] 2022-05-18 08:20:00 2022-05-18 11:42:35 Office Visit Ananda Prince [facility]?JIM [facility] OFFICE BUILDING 1.2.840.114 350.1.13.10 4.2.7.2.686 [id number] [id number] [facility] 2022-05-18 09:00:00 2022-05-18 09:26:11 Cytology Supervisor Visit Lab, Omkar - Marco Niki [facility] OFFICE BUILDING 1.2.840.114 350.1.13.10 4.2.7.2.686 [id number] 353 [id number] [facility] 2022-05-14 00:00:00 2022-05-14 00:00:00 Refevita Ananda Prince [facility] 1.2.840.114 350.1.13.10 4.2.7.2.686 [id number] [id number] [facility] 2022-04-26 14:40:00 2022-04-26 15:37:43 Outpatient R MERE MARRUFO [facility] [id number] [facility] 2022-04-26 14:40:00 2022-04-26 15:37:43 [facility] 1.2.840.114 350.1.13.10 4.2.7.2.686 [id number] [facility] 2022-04-12 00:00:00 2022-04-12 00:00:00 Ananda Rosenberg [facility] 1.2.840.114 350.1.13.10 4.2.7.2.686 [id number] 092 [id number] [facility] 2022-04-12 00:00:00 2022-04-12 00:00:00 Refill Tommy [facility]ul[facility] 1.2.840.114 350.1.13.10 4.2.7.2.686 [id number] [facility] 2022-04-12 00:00:00 2022-04-12 00:00:00 Refill Mere [facility]rufo [facility] 1.2.840.114 350.1.13.10 4.2.7.2.686 [id number] 231 [id number] [facility] 2022-04-08 00:00:00 2022-04-08 00:00:00 Patient Secure Msg Doctor Unassigned, [place] [facility] 1.2.840.114 350.1.13.10 4.2.7.2.686 [id number] [facility] 2022-04-04 10:30:00 2022-04-04 10:45:00 Cytology Supervisor Visit 2, Adc Lab Tommy Johnjasmin [facility] BUILDING 1.2.840.114 350.1.13.10 4.2.7.2.686 [id number] 353 [id number] [facility] 2022-04-04 09:30:00 2022-04-04 10:22:34 Office Visit Paula John [facility] BUILDING 1.2.840.114 350.1.13.10 4.2.7.2.686 [id number] [id number] [facility] 2022-04-04 09:30:00 2022-04-04 10:22:34 Outpatient R PAULA JOHN OGECHUKWU [facility] [id number] [facility] 2022-03-08 10:15:00 2022-03-08 10:30:00 Cytology Supervisor Visit 2, Adc Lab Mere Marrufo [facility] NAL BUILDING 1.2.840.114 350.1.13.10 4.2.7.2.686 [id number] [facility] 2022-03-08 10:15:00 2022-03-08 10:15:00 Outpatient MERE GO [facility] [id number] [facility] 2022-03-02 00:00:00 2022-03-02 00:00:00 Refill Mere Marrufo [facility] BUILDING 1.2.840.114 350.1.13.10 4.2.7.2.686 [id number] [facility] 2022-02-22 10:00:00 2022-02-22 10:00:00 Outpatient MERE GO [facility] [id number] [facility] 2022-01-29 00:00:00 2022-01-29 00:00:00 Refill Pema Monet [facility] BUILDING 1.2.840.114 350.1.13.10 4.2.7.2.686 [id number] 231 [id number] [facility] 2022-01-17 00:00:00 2022-01-17 00:00:00 Refill Mere Marrufo [facility] BUILD[facility] 1.2.840.114 350.1.13.10 4.2.7.2.686 [id number] [facility] 2021-12-04 00:00:00 2021-12-04 00:00:00 Refill Ananda Prince [facility] NAL BUILDING 1.2.840.114 350.1.13.10 4.2.7.2.686 [id number] [id number] [facility] 2021-11-19 00:00:00 2021-11-19 00:00:00 Ananda Rosenberg [facility] NAL BUILDING 1.2.840.114 350.1.13.10 4.2.7.2.686 [id number] [facility] 2021-09-06 11:00:00 2021-09-06 11:00:00 Outpatient MERE GO [facility] [id number] [facility] 2021-09-06 11:00:00 2021-09-06 11:00:00 Cytology Supervisor Visit 2, Adc Lab Mere Marrufo [facility] BUILDING 1.2.840.114 350.1.13.10 4.2.7.2.686 [id number] [facility] 2021-09-06 00:00:00 2021-09-06 00:00:00 Mere Medina [facility] BUILD[facility] 1.2.840.114 350.1.13.10 4.2.7.2.686 [id number] [facility] 2021-09-04 10:20:00 2021-09-04 17:09:09 Office Visit Paula John [facility] 1.2.840.114 350.1.13.10 4.2.7.2.686 [id number] [id number] [facility] 2021-09-04 10:20:00 2021-09-04 17:09:09 Outpatient PAULA PAL OGECHUKWU [facility] [id number] [facility] 2021-09-04 10:00:00 2021-09-04 11:02:25 Outpatient R MERE MARRUFO [facility] [id number] [facility] 2021-09-04 10:00:00 2021-09-04 11:02:25 Office Visit Paula John Elizabeth A [facility] BUILDING 1.2.840.114 350.1.13.10 4.2.7.2.686 [id number] [facility] 2021-08-09 00:00:00 2021-08-09 00:00:00 Refill Mere Marrufo [facility] 1.2.840.114 350.1.13.10 4.2.7.2.686 [id number] [facility] 2021-06-20 00:00:00 2021-06-20 00:00:00 Telephone Mere Marrufo [facility] 1.2.840.114 350.1.13.10 4.2.7.2.686 [id number] [facility] 2021-06-20 00:00:00 2021-06-20 00:00:00 Orders Only Doctor Unassigned, [place] [facility] 1.2.840.114 350.1.13.10 4.2.7.2.686 [id number] [facility] 2021-06-12 08:19:24 2021-06-12 08:41:17 Nurse Visit Nurse, [facility] Mere Marrufo [facility] 1.2.840.114 350.1.13.10 4.2.7.2.686 [id number] [facility] 2021-06-12 08:20:00 2021-06-12 08:20:00 Outpatient R [facility] [id number] [facility] 2021-05-18 11:00:00 2021-05-18 23:59:00 Hospital Encounter Vicki Castillo [facility] 1.2.840.114 350.1.13.10 4.2.7.2.686 [id number] [facility] 2021-05-18 12:47:41 2021-05-18 14:20:14 [facility] 1.2.840.114 350.1.13.10 4.2.7.2.686 [id number] [facility] 2021-05-18 13:00:00 2021-05-18 13:00:00 Outpatient MERE GO [facility] [id number] [facility] 2021-05-18 10:31:16 2021-05-18 11:39:32 Office [facility] 1.2.840.114 350.1.13.10 4.2.7.2.686 [id number] [facility] 2021-05-18 00:00:00 2021-05-18 00:00:00 Orders Only Doctor Unassigned, [place] [facility] 1.2.840.114 350.1.13.10 4.2.7.2.686 [id number] [facility] 2021-05-15 15:00:00 2021-05-15 15:00:00 Outpatient R VICKI CASTILLO [facility] [id number] [facility] 2021-05-12 10:00:00 2021-05-12 10:00:00 Outpatient MERE GO [facility] [id number] [facility] 2021-01-13 15:40:00 2021-01-13 15:40:00 Outpatient SILVANA MCGUIRE [facility] [id number] [facility] 2020-12-01 00:00:00 2020-12-01 00:00:00 Patient Secure Msg Doctor Unassigned, [place] [facility] 1.2.840.114 350.1.13.10 4.2.7.2.686 [id number] [facility] 2020-10-27 10:00:00 2020-10-27 10:00:00 Outpatient R [facility] [id number] [facility] 2020-10-25 00:00:00 2020-10-25 00:00:00 Outpatient NENO OTERO [facility] [id number] [facility] 2020-10-24 15:00:00 2020-10-24 15:00:00 Outpatient R [facility] [id number] [facility] 2020-10-14 08:40:00 2020-10-14 08:40:00 Outpatient SILVANA MCGUIRE [facility] [id number] [facility] 2020-08-31 14:30:00 2020-08-31 14:30:00 Outpatient MERE GO [facility] [id number] [facility] 2020-06-24 09:39:45 2020-06-24 10:43:44 Office Visit Ananda Prince [facility] 1.2.840.114 350.1.13.10 4.2.7.2.686 [id number] 2020-06-24 09:40:00 2020-06-24 09:40:00 Outpatient ANANDA NIEVES HOWARD [facility] [id number] [facility] 2020-06-10 10:00:00 2020-06-10 10:00:00 Outpatient MERE GO [facility] [id number] [facility] 2020-05-12 16:00:00 2020-05-12 16:00:00 Outpatient VICKI HANSON [facility] [id number] [facility] 2020-05-12 08:45:00 2020-05-12 08:45:00 Outpatient VICKI HANSON [facility] [id number] [facility] 2020-05-04 13:30:00 2020-05-04 13:30:00 Outpatient VICKI HANSON [facility] [id number] [facility] 2020-04-28 09:15:00 2020-04-28 09:15:00 Outpatient VICKI HANSON [facility] [id number] [facility] 2020-04-07 00:00:00 2020-04-07 00:00:00 Patient Secure Msg Doctor Unassigned, [place] [facility] 1.2.840.114 350.1.13.10 4.2.7.2.686 [id number] [facility] 2020-04-05 13:20:00 2020-04-05 13:20:00 Outpatient Angel [facility] [id number] [facility] 2020-03-22 11:30:00 2020-03-22 11:30:00 Outpatient Angel MERE MARRUFO [facility] [id number] [facility] 2019-12-10 08:40:00 2019-12-10 08:40:00 Outpatient MERE GO [facility] [id number] [facility] 2019-10-23 11:09:07 2019-10-23 14:32:00 Emergency X JERAMIE JAMISON [facility] ERT [id number] [facility] 2019-08-04 13:54:23 2019-08-04 23:59:00 Outpatient SHYLA ALMAGUER [facility] [id number] [facility] Results Test Description Test Time Test Comments Results Result Co mments Source JACKY Newman + [id number] 00:00:00* Test Item Value Reference Range Interpretation Comme nts LMP date: (test code = LMP date:) 09/02/2018 Pap, liquid-based (test code = Pap, liquid-based) NILM nilm source (liquid-based cytology): (test code = source (liquid-based cytology):) CERVICAL (WHICH INCLUDES ENDOCERVICAL) HPV high risk DNA (non 16/18) (test code = HPV high risk DNA (non 16/18)) NOT DETECTED not detected HPV high risk DNA type 16 (test code = HPV high risk DNA type 16) NOT DETECTED not detected HPV high risk DNA type 18 (test code = HPV high risk DNA type 18) NOT DETECTED not detected [facility] Hemoglobin A1C [id number] 19:51:00* Test Item Value Reference Range Interpretation Comme [facility] POCT HBA1C (test code = 4548-4) 8.1 % 4-6 A Lab Interpretation (test cod e = 61307-9) Abnormal [facility] Hemoglobin A1C [id number] 19:51:00* Test Item Value Reference Range Interpretation Comme [facility] POCT HBA1C (test code = 4548-4) 8.1 % 4-6 A Lab Interpretation (test cod e = 67724-6) Abnormal [facility] HEMOGLOBIN A1C [id number] 17:44:00* Test Item Value Reference Range Interpretation Comme [facility] POCT HBA1C (test code = 4548-4) 8.4 % 4-6 A Lab Interpretation (test cod e = 44785-4) Abnormal [facility] HEMOGLOBIN A1C [id number] 17:44:00* Test Item Value Reference Range Interpretation Comme nts POCT HBA1C (test code = 4548-4) 8.4 % 4-6 A Lab Interpretation (test cod e = 84180-1) Abnormal [facility] HEMOGLOBIN A1C [id number] 17:44:00* Test Item Value Reference Range Interpretation Comme [facility] POCT HBA1C (test code = 4548-4) 8.4 % 4-6 A Lab Interpretation (test cod e = 86186-7) Abnormal [facility] METABOLIC [id number] 06:04:00* Test Item Value Reference Range Interpretation Comme nts SODIUM (test code = NA) 137 MMOL/L 137-145 N POTASSIUM (test code = K) 4.9 MMOL/L 3.5-5.1 N CHLORIDE (test code = CL) 101 MMOL/L 98-107 N CARBON DIOXIDE (test code = CO2) 29 MMOL/L 22-30 N GLUCOSE (test code = GLU) 160 MG/DL 74-106 H BLOOD UREA NITROGEN (test code = BUN) 13 MG/DL 7-17 N GLOMERULAR FILTRATION RATE (test code = GFR) > 60 Reporting units: ml/min/1.73 m2 (Modified MDRD Formula)Reference Range: > or = 60 ml/min/1.73 m2 CREATININE (test code = CREAT) 0.50 MG/DL 0.52-1.04 L CALCIUM (test code = CA) 9.1 MG/DL 8.4-10.2 N LIPID PROFILE (CORONARY RISK)2019-07-11 06:04:00* Test Item Value Reference Range Interpretation Comme nts TRIGLYCERIDES (test code = TRIG) 159 MG/DL TRIGLYCERIDES REFERENCE RANGE:Normal: <150 mg/dLBorderline High: 150-199 mg/dLHigh: 200-499 mg/dLVery High: >=500 mg/dL CHOLESTEROL (test code = CHOL) 214 MG/DL <200 HDL CHOLESTEROL (test code = HDL) 54 MG/DL 40-59 N LIPOPROTEIN LDL (test code = LDL) 129 MG/DL 0-99 H OPTIMAL......... <100 mg/dLNEAR OPTIMAL/ABOVE OPTIMAL.........100-12 9 mg/dL BORDERLINE HIGH.........130-159 mg/dL HIGH.........160-189 mg/dL VERY HIGH.........>/= 190 mg/dL [id number] 06:04:00* Test Item Value Reference Range Interpretation Comme [facility] MAGNESIUM (test code = MAG) 2.0 MG/DL 1.6-2.3 N PROTHROMBIN [id number] 05:56:00* Test Item Value Reference Range Interpretation Comme [facility] PROTHROMBIN TIME PATIENT (test code = PTP) 9.5 SECONDS 9.6-11.6 L INTERNATIONAL NORMAL RATIO (test code = INR) 0.9 0.8-1.1 N The INR is to be used only for monitoring oral anticoagulanttherap y. INDICATION INR VALUE -------1. Prophylaxis, deep venous thrombosis, including high risk surgery. 2.0 - 3.0 2. Prophylaxis, deep venous thrombosis, hip surgery, treatment for deep venous thrombosis or pulmonary prevention of systemic embolism in patients with valvular heart disease, atrial fibrillation, tissue heart valve, or acute myocardial infarction. 2.0 - 3.0 3. Mechanical prosthesis heart valves, recurrent systemic embolism. 3.0 - 4.5 Comments to Wine Specialist: WILL BRING TO LABPTT [id number] 05:56:00* Test Item Value Reference Range Interpretation Comme nts PTT ACTIVATED (test code = APTT) 30.5 SECONDS 22.0-33.0 N Comments to Wine Specialist: WILL BRING TO LABBASIC METABOLIC [id number] 05:53:00* Test Item Value Reference Range Interpretation Comme nts SODIUM (test code = NA) 137 MMOL/L 137-145 N POTASSIUM (test code = K) 4.9 MMOL/L 3.5-5.1 N CHLORIDE (test code = CL) 101 MMOL/L 98-107 N CARBON DIOXIDE (test code = CO2) 29 MMOL/L 22-30 N GLUCOSE (test code = GLU) 160 MG/DL 74-106 H BLOOD UREA NITROGEN (test code = BUN) 13 MG/DL 7-17 N GLOMERULAR FILTRATION RATE (test code = GFR) > 60 Reporting units: ml/min/1.73 m2 (Modified MDRD Formula)Reference Range: > or = 60 ml/min/1.73 m2 CREATININE (test code = CREAT) 0.50 MG/DL 0.52-1.04 L CALCIUM (test code = CA) 9.1 MG/DL 8.4-10.2 N LIPID PROFILE (CORONARY RISK)2019-07-11 05:53:00* Test Item Value Reference Range Interpretation Comme nts TRIGLYCERIDES (test code = TRIG) 159 MG/DL TRIGLYCERIDES REFERENCE RANGE:Normal: <150 mg/dLBorderline High: 150-199 mg/dLHigh: 200-499 mg/dLVery High: >=500 mg/dL CHOLESTEROL (test code = CHOL) 214 MG/DL <200 HDL CHOLESTEROL (test code = HDL) 54 MG/DL 40-59 N LIPOPROTEIN LDL (test code = LDL) MG/DL 0-99 [id number] 05:53:00* Test Item Value Reference Range Interpretation Comme nts MAGNESIUM (test code = MAG) 2.0 MG/DL 1.6-2.3 N BASIC METABOLIC [id number] 05:52:00* Test Item Value Reference Range Interpretation Comme nts SODIUM (test code = NA) 137 MMOL/L 137-145 N POTASSIUM (test code = K) 4.9 MMOL/L 3.5-5.1 N CHLORIDE (test code = CL) 101 MMOL/L 98-107 N CARBON DIOXIDE (test code = CO2) 29 MMOL/L 22-30 N GLUCOSE (test code = GLU) 160 MG/DL 74-106 H BLOOD UREA NITROGEN (test code = BUN) 13 MG/DL 7-17 N GLOMERULAR FILTRATION RATE (test code = GFR) > 60 Reporting units: ml/min/1.73 m2 (Modified MDRD Formula)Reference Range: > or = 60 ml/min/1.73 m2 CREATININE (test code = CREAT) 0.50 MG/DL 0.52-1.04 L CALCIUM (test code = CA) MG/DL 8.7-9.7 LIPID PROFILE (CORONARY RISK)2019-07-11 05:52:00* Test Item Value Reference Range Interpretation Comme nts TRIGLYCERIDES (test code = TRIG) MG/DL CHOLESTEROL (test code = CHOL) 214 MG/DL <200 HDL CHOLESTEROL (test code = HDL) MG/DL 40-59 LIPOPROTEIN LDL (test code = LDL) MG/DL 0-99 [id number] 05:52:00* Test Item Value Reference Range Interpretation Comme nts MAGNESIUM (test code = MAG) MG/DL 1.6-2.3 BASIC METABOLIC [id number] 05:49:00* Test Item Value Reference Range Interpretation Comme nts SODIUM (test code = NA) 137 MMOL/L 137-145 N POTASSIUM (test code = K) 4.9 MMOL/L 3.5-5.1 N CHLORIDE (test code = CL) 101 MMOL/L 98-107 N CARBON DIOXIDE (test code = CO2) MMOL/L 22-30 GLUCOSE (test code = GLU) MG/DL 74-106 BLOOD UREA NITROGEN (test co de = BUN) MG/DL 7-17 GLOMERULAR FILTRATION RATE ( test code = GFR) CREATININE (test code = CREAT) MG/DL 0.52-1.04 CALCIUM (test code = CA) MG/DL 8.7-9.7 LIPID PROFILE (CORONARY RISK)2019-07-11 05:49:00* Test Item Value Reference Range Interpretation Comme nts TRIGLYCERIDES (test code = TRIG) MG/DL CHOLESTEROL (test code = CHOL) MG/DL <200 HDL CHOLESTEROL (test code = HDL) MG/DL 40-59 LIPOPROTEIN LDL (test code = LDL) MG/DL 0-99 [id number] 05:49:00* Test Item Value Reference Range Interpretation Comme nts MAGNESIUM (test code = MAG) MG/DL 1.6-2.3 CBC W/AUTO [id number] 05:42:00* Test Item Value Reference Range Interpretation Comme nts WHITE BLOOD CELL (test code = WBC) 6.0 K/MM3 3.8-9.8 N RED BLOOD CELL (test code = RBC) 4.13 M/MM3 3.58-4.97 N HEMOGLOBIN (test code = HGB) 12.3 G/DL 11.2-14.9 N HEMATOCRIT (test code = HCT) 38.0 % 33.2-43.5 N MEAN CELL VOLUME (test code = MCV) 92 fL 80.7-99.1 N MEAN CELL HGB (test code = MCH) 29.8 pg 27.0-34.1 N MEAN CELL HGB CONCETRATION (test code = MCHC) 32.4 % 32.2-35.7 N RED CELL DISTRIBUTION WIDTH (test code = RDW) 13.1 % 12.1-15.2 N PLATELET COUNT (test code = PLT) 267 K/MM3 129-368 N MEAN PLATELET VOLUME (test c ode = MPV) 9.6 fl 7.4-10.4 N NEUTROPHIL % (test code = NT%) 50.9 % 43-75 N IMMATURE GRANULOCYTE % (test code = IG%) 0.2 % 0.0-2.0 N LYMPHOCYTE % (test code = LY%) 38.9 % 14-44 N MONOCYTE % (test code = MO%) 6.8 % 4-13 N EOSINOPHIL % (test code = EO%) 2.5 % 0-6 N BASOPHIL % (test code = BA%) 0.7 % 0-2 N NUCLEATED RBC % (test code = NRBC%) 0.0 % 0-1.0 N NEUTROPHIL # (test code = NT#) 3.06 K/mm3 2.0-7.6 N IMMATURE GRANULOCYTE # (test code = IG#) 0.01 x10 3/uL 0-0.03 N LYMPHOCYTE # (test code = LY#) 2.34 K/mm3 1.0-3.8 N MONOCYTE # (test code = MO#) 0.41 K/mm3 0.1-0.8 N EOSINOPHIL # (test code = EO#) 0.15 K/mm3 0.0-0.2 N BASOPHIL # (test code = BA#) 0.04 K/mm3 0.0-0.2 N NUCLEATED RBC # (test code = NRBC#) 0.00 K/mm3 0.0-0.1 N
[2024-08-16] MEDS ORDERED: IBUPROFEN 400 MG TAB ONE (09:18)
[2024-08-16] MEDS ORDERED: ACETAMINOPHEN 500 MG TAB ONE (09:18)
[2024-08-16] MEDS ORDERED: ONDANSETRON 4 MG/2 ML VIAL ONE (09:18)
[2024-08-16] MEDS ORDERED: METOCLOPRAMIDE 10 MG/2mL INJ ONE (09:19)
[2024-08-16 09:37] LABS: Absolute Lymphocytes (CBC) 0.6 K/uL (0.7-4.9); Absolute Monocytes 0.6 K/uL (0.1-1.3); Absolute Neutrophil 6.6 K/uL (1.8-8.0); Basophils % 0.4 % (0-1.3); Eosinophils % 0.3 % (0-4.4); Hematocrit 36.3 % (36.0-45.0); Hemoglobin 11.9 g/dL (12.0-15.0); Lymphocytes % 7.2 % (15.3-44.8); MCH 29.7 pg (27.0-35.0); MCHC 32.7 g/dL (32.0-36.0); MCV 90.8 fL (80-100); MPV 7.7 fL (7.6-11.3); Monocytes % 7.2 % (3.3-12.3); Neutrophils % 84.9 % (41.7-73.7); Platelets 185 thou/uL (152-406); Red Cell Distribution Width 13.6 % (12.1-15.2)
--- NOTE | 2024-08-16 09:54 | RAD REPORT ---
Procedure: Chest Pa And Lat (2 Views) HISTORY: Cough COMPARISON: none FINDINGS: The lungs appear clear of acute infiltrate. No significant pleural effusion noted. The heart is normal size. IMPRESSION: No acute abnormality is displayed.
[2024-08-16 10:06] LABS: SARS-CoV-2 Antigen CONTROL BLUE LINE VIS/BG OK; SARS-CoV-2 Antigen Rapid Res Negative (Negative)
--- NOTE | 2024-08-16 10:12 | EDPHYS ---
Physician Documentation [facility] Name: Jenny Crespo Age: 58 yrs Sex: Female : 1965 Arrival Date: 08/16/2024 Time: 08:48 Bed 8 Private MD: ED Physician Joel Jaffe HPI: 08/16 10:06 This 58 yrs old Black Female presents to ER via EMS with complaints of Flu Symptoms. bo1 10:06 sudden onset. Onset: The symptoms/episode began/occurred suddenly. Severity of bo1 symptoms: At their worst the symptoms were moderate. No known family source. Historical: - Allergies: 08:51 Cymbalta (rash); bp 08:51 Flexeril (rash); bp 08:51 GABAPENTIN (rash); bp 08:51 Lisinopril; cough; bp 08:51 Lyrica (rash); bp - PMHx: 08:51 PERIPHERAL NEUROPATHY; Diabetes - NIDDM; Arthritis; Hypertension; bp - Immunization history:: Adult Immunizations up to date. - Infectious Disease History:: Denies. - Social history:: Smoking status: unknown. ROS: 10:07 Constitutional: Negative for weight loss bo1 10:07 Constitutional: Positive for chills, fever, 10:07 Neck: Negative for pain with movement, pain at rest, 10:07 Cardiovascular: Negative for chest pain, 10:07 Respiratory: Positive for cough, 10:07 Abdomen/GI: Negative for abdominal pain, 10:07 Back: Negative for pain at rest, pain with movement, 10:07 Skin: Negative for rash, Exam: 10:08 Constitutional: This is a well developed, well nourished patient who is awake, alert, bo1 and in acute distress. 10:08 Constitutional: The patient appears alert, awake, non-toxic, obviously ill, 10:08 Head/face: Exam is negative for acute changes, 10:08 Eyes: Exam is negative for Conjunctiva: injected, None, 10:08 ENT: Posterior pharynx: erythema, that is mild, exudate, is not appreciated, 10:08 Chest/axilla: Inspection: normal, 10:08 Cardiovascular: Rate: tachycardic, Rhythm: regular, Pulses: no pulse deficits are appreciated, 10:08 Abdomen/GI: Palpation: abdomen is soft and non-tender, rebound tenderness, is not appreciated, 10:08 Skin: no rash present. Vital Signs: 08:50 BP 139 / 82; Pulse 119; Resp 20; Temp 102.3; Pulse Ox 94% ; bp 10:37 BP 141 / 75; Pulse 97; Resp 18; Temp 99.7; Pulse Ox 95% ; bp MDM: 08:58 Medical Screening Exam initiated bo1 10:09 Differential Diagnosis flu, Other viral febrile illness. Data reviewed: vital signs, bo1 lab test result(s). Management of patient was discussed with the following: Family and pt, pt refuses the anti-emetic as she is not nauseated. ED course: Empiric treatment with Tamiflu and anti-pyretics. 08/16 09:04 Order name: CBC with Diff; Complete Time: 09:45 bo1 08/16 09:04 Order name: Flu; Complete Time: 09:57 bo1 08/16 09:04 Order name: RSV; Complete Time: 10:20 bo1 08/16 09:04 Order name: SARS-COV-2 Antigen Rapid; Complete Time: 10:13 bo1 08/16 09:04 Order name: Chest Pa And Lat (2 Views) XRAY; Complete Time: 09:57 bo1 Administered Medications: 09:21 Drug: Acetaminophen PO 1000 mg PO once Route: PO; bp 10:36 Follow up: Response: No adverse reaction bp 09:21 Drug: Ibuprofen PO 800 mg PO once Route: PO; bp 10:36 Follow up: Response: No adverse reaction bp 10:36 Not Given (Patient Refused): [id number] mg IVP once; over 15 mins bp 10:36 Not Given (Patient Refused): ondansetron 4 mg IVP once; over 2 minutes bp Disposition Summary: 08/16/24 10:12 Discharge Ordered Notes: Location: Home bo1 Problem: new bo1 Symptoms: have improved bo1 Condition: Stable bo1 Diagnosis - Influenza due to identified novel influenza A virus bo1 - Fever, unspecified bo1 Followup: bo1 - With: Private Physician - When: Upon discharge from the Emergency Department - Reason: Recheck today's complaints, Continuance of care Discharge Instructions: - Discharge Summary Sheet bo1 - Fever, Adult bo1 - Influenza, Adult, [id number] bo1 Forms: - Medication Reconciliation Form bo1 - Antibiotic Education bo1 - Prescription Opioid Use bo1 - Patient Portal Instructions bo1 - Leadership Thank You Letter bo1 Prescriptions: - Tamiflu 75 mg Oral capsule - take 1 tablet ORAL route every 12 hours for 5 days; 10 tablet; Refills: 0, bo1 Product Selection Permitted Signatures: Dispatcher [employer] Mp Isidro, Joel Hong RN, MD MD bo1
--- NOTE | 2024-08-16 10:12 | ER ---
Nurse's Notes [facility] Name: Jenny Crespo Age: 58 yrs Sex: Female : 1965 Arrival Date: 08/16/2024 Time: 08:48 Bed 8 Private MD: Diagnosis: Influenza due to identified novel influenza A virus;Fever, unspecified Presentation: 08/16 08:50 Chief complaint: EMS states: FLU LIKE S/S SINCE 1400 YESTERDAY. Coronavirus screen: bp fever, muscle pain, Client presents with at least one sign or symptom that may indicate coronavirus-19. Provider contacted for isolation considerations. Ebola Screen: No symptoms or risks identified at this time. Initial Sepsis Screen: Does the patient meet any 2 criteria? Temp <36.0*C (96.8*F)) or > 38.3*C (100.9*F). HR > 90 bpm. Yes If YES to both, name of provider notified: Joel Jaffe MD. Risk Assessment: Do you want to hurt yourself or someone else? Patient reports no desire to harm self or others. Onset of symptoms was August 15, 2024 at 14:00. 08:50 Method Of Arrival: EMS: [facility] bp 08:50 Acuity: SANDIP 4 bp Triage Assessment: 08:51 General: Appears in no apparent distress. uncomfortable, obese, Behavior is calm, bp cooperative, appropriate for age. Pain: Denies pain. EENT: Reports nasal congestion. Neuro: No deficits noted. Cardiovascular: Rhythm is sinus tachycardia. Respiratory: No deficits noted. GI: No signs and/or symptoms were reported involving the gastrointestinal system. : No signs and/or symptoms were reported regarding the genitourinary system. Derm: No deficits noted. Musculoskeletal: No deficits noted. Historical: - Allergies: 08:51 Cymbalta (rash); bp 08:51 Flexeril (rash); bp 08:51 GABAPENTIN (rash); bp 08:51 Lisinopril; cough; bp 08:51 Lyrica (rash); bp - PMHx: 08:51 PERIPHERAL NEUROPATHY; Diabetes - NIDDM; Arthritis; Hypertension; bp - Immunization history:: Adult Immunizations up to date. - Infectious Disease History:: Denies. - Social history:: Smoking status: unknown. Screenin:54 [facility] ED Fall Risk Assessment (Adult) History of falling in the last 3 months, bp including since admission No falls in past 3 months (0 pts) Confusion or Disorientation No (0 pts) Intoxicated or Sedated No (0 pts) Impaired Gait No (0 pts) Mobility Assist Device Used No (0 pt) Altered Elimination No (0 pt) Score/Fall Risk Level 0 - 2 = Low Risk Oriented to surroundings. Abuse screen: Denies threats or abuse. Denies injuries from another. Nutritional screening: No deficits noted. Tuberculosis screening: No symptoms or risk factors identified. Assessment: 10:04 Reassessment: Dr. Jaffe at bedside discussing results and POC. jl7 10:37 Reassessment: Patient is alert, oriented x 3, equal unlabored respirations, skin bp warm/dry/pink. Patient states symptoms have improved. Vital Signs: 08:50 BP 139 / 82; Pulse 119; Resp 20; Temp 102.3; Pulse Ox 94% ; bp 10:37 BP 141 / 75; Pulse 97; Resp 18; Temp 99.7; Pulse Ox 95% ; bp ED Course: 08:50 Patient arrived in ED. bp 08:51 Triage completed. bp 08:51 Arm band placed on. bp 08:54 Patient has correct armband on for positive identification. bp 08:55 Mp Ernandez, RN is Primary Nurse. bp 08:58 Joel Jaffe MD is Attending Physician. bo1 09:30 Initial lab(s) drawn, by me, sent to lab. COVID swab sent to lab. Flu and/or RSV swab jl7 sent to lab. Inserted saline lock: 22 gauge in right antecubital area, using aseptic technique. Blood collected. Flushed with 10 mL NS. 09:42 Chest Pa And Lat (2 Views) XRAY In Process Unspecified. EDMS 10:37 No provider procedures requiring assistance completed. IV discontinued, intact, bp bleeding controlled, No redness/swelling at site. Pressure dressing applied. Administered Medications: 09:21 Drug: Acetaminophen PO 1000 mg PO once Route: PO; bp 10:36 Follow up: Response: No adverse reaction bp 09:21 Drug: Ibuprofen PO 800 mg PO once Route: PO; bp 10:36 Follow up: Response: No adverse reaction bp 10:36 Not Given (Patient Refused): [id number] mg IVP once; over 15 mins bp 10:36 Not Given (Patient Refused): ondansetron 4 mg IVP once; over 2 minutes bp Medication: 09:31 VIS not applicable for this client. jl7 Outcome: 10:12 Discharge ordered by . bo1 10:37 Discharged to home via wheelchair, with family, bp 10:37 Condition: stable 10:37 Discharge instructions given to patient, family, Instructed on discharge instructions, follow up and referral plans. medication usage, Demonstrated understanding of instructions, follow-up care, medications, Prescriptions given X 1, 10:38 Patient left the ED. bp Signatures: Dispatcher [employer] EDMS Tiara High RN RN jl7 Mp Ernandez RN RN bp Oei, Joel, MD MD stuart
[2024-08-16 10:44] VITALS: BP 141/75; TEMP 99.7; O2SAT 95
== END 2024-08-16 10:38 | disposition home or self-care (01) ==
LOC: ER 08:48
DX: J10.1 Influenza due to other identified influenza virus with other respiratory manifestations (principal); Z11.52 Encounter for screening for COVID-19
CPT/HCPCS: 36415; 71046; 85025; 87804; 87807; 87811; 99284; J2405; J2765